=== PATIENT | male | born 1990 | race Caucasian/White ===

== ENCOUNTER 2018-07-19 15:54 | Emergency (ER) | payer OTHER, SELFPAY ==
[2018-07-19 15:57] VITALS: BP 129/75; PULSE 95; RESP 15; TEMP 36.8; O2SAT 100; BMI 19.8
--- NOTE | 2018-07-19 16:13 | DI.RAD.S_ITS ---
PROCEDURE: XR CHEST 1V INDICATIONS: suspected sepsis TECHNIQUE: One view of the chest was acquired. COMPARISON: None. FINDINGS: Surgical changes and devices: None. Lungs and pleura: Lungs are clear. No pleural effusions or pneumothorax. Mediastinum: Mediastinal contours appear normal. Heart size is normal. Bones and chest wall: No suspicious bony lesions. Overlying soft tissues appear unremarkable. IMPRESSION: No acute disease Dictated by: Bryson Shine M.D. on 07/19/2018 at 16:51 Approved by: Bryson Shine M.D. on 07/19/2018 at 16:52
[2018-07-19 16:39] LABS: Add Manual Diff / Slide Review NO; Basophils Absolute Auto 100 /uL (0-100); Basophils Percent Auto 0.8 % (0-2); Eosinophils Absolute Auto 100 /uL (0-450); Eosinophils Percent Auto 0.8 % (2-4); Hematocrit 29.4 % (41-53); Hemoglobin 9.2 g/dL (13.5-17.5); Lymphocytes Absolute Auto 1900 /uL (1100-4500); Lymphocytes Percent Auto 23.1 % (25-40); Mean Corpuscular HGB Conc 31.4 % (30-36); Mean Corpuscular Hemoglobin 23.8 PG (26-34); Mean Corpuscular Volume 75.7 fL (80-100); Monocytes Absolute Auto 1400 /uL (0-900); Monocytes Percent Auto 17.1 % (3-14); Neutrophils Absolute Auto 4800 /uL (1500-7000); Neutrophils Percent Auto 58.2 % (50-75); Red Blood Cell Count 3.87 X10^6/uL (4.5-5.9); Red Cell Distribution Width 15.7 % (11.6-14.8); White Blood Cell Count 8.3 X10^3/uL (4.5-11.0)
[2018-07-19 16:40] LABS: Platelet Count 856 X10^3/uL (150-400)
[2018-07-19 16:47] LABS: INR 1.5 (0.9-1.3); Prothrombin Time 17.7 SECONDS (10.1-12.7)
[2018-07-19 16:50] LABS: PTT Partial Thromboplastin Tim 38 SECONDS (26.4-36.2)
[2018-07-19 16:52] LABS: Alanine Aminotransferase 34 IU/L (21-72); Albumin 3.4 g/dL (3.5-5.0); Albumin Globulin Ratio 0.8 (1.0-2.8); Alkaline Phosphatase 93 U/L (38-126); Aspartate Aminotransferase 33 IU/L (17-59); BUN Creatinine Ratio 16.3 (6-22); Bilirubin Total 0.7 mg/dL (0.2-1.3); Blood Urea Nitrogen 13 mg/dL (9-20); Carbon Dioxide 26 mmol/L (22-32); Chloride 100 mmol/L (98-107); Estimated Glomerular Filt Rate > 60.0 mL/min (>60); Globulin 4.4 g/dL (1.7-4.1); Glucose 105 mg/dL (70-100); HEMOLYSIS < 15 (0-50); Lipase 19 U/L (23-300); Sodium 139 mmol/L (137-145); Total Protein 7.8 g/dL (6.3-8.2)
[2018-07-19 16:53] LABS: Lactate (Lactic Acid) 1.7 mmol/L (0.7-2.1)
--- NOTE | 2018-07-19 16:54 | ED.RECABL ---
HPI - Recheck/Abnormal Lab/Rx <Yovanny Colin DO - Last Filed: 07/20/18 08:49> General Chief Complaint: Recheck/Abnormal Lab/Rx Stated Complaint: Abnromal labs per [facility] Time Seen by Provider: 07/19/18 16:00 Source: patient Mode of arrival: ambulatory Limitations: no limitations History of Present Illness HPI narrative: 27-year-old male nonsmoker and otherwise healthy presents from the [facility] for evaluation of a few months worth of migrating joint pain and swelling in the absence of injury. It had started where his pain moved from ankle to knee to wrist with swelling but then would resolve prior to moving. Over the past few weeks it has become much more persistent and multiple joints at the same time. He now has swelling of both knees as well as both wrists. For the past week or 2 he has had night sweats as well as subjective fever and chills. 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 Related Data Home Medications Medication Instructions Recorded Confirmed acetaminophen 1 dose PO PRN PRN 07/19/18 07/19/18 naproxen 1 dose PO PRN PRN 07/19/18 07/19/18 Allergies Allergy/AdvReac Type Severity Reaction Status Date / Time Penicillins Allergy Verified 07/19/18 17:07 Review of Systems <DO Erika Mansfield Last Filed: 07/20/18 08:49> Constitutional Denies chills, Denies fever(s), Denies lethargy and Denies weakness Comments: night sweats Eyes Denies change in vision, Denies eye discharge, Denies irritation and Denies loss of vision ENT Ears, Nose, Mouth, and Throat: Denies change in voice, Denies neck pain and Denies sore throat Cardiovascular Denies chest pain, Denies irregular heart rhythm, Denies lightheadedness, Denies palpitations, Denies dyspnea, Denies dyspnea on exertion and Denies orthopnea Respiratory Denies cough, Denies dyspnea, Denies dyspnea on exertion and Denies wheezing Gastrointestinal Gastrointestinal: Denies abdominal pain, Denies change in bowel habits, Denies diarrhea, Denies nausea and Denies vomiting Genitourinary Denies hematuria, Denies flank pain, Denies urinary incontinence and Denies urinary urgency Musculoskeletal Denies neck pain Integumentary/Breasts Denies pruritus, Denies erythema, Denies rash and Denies wounds Neurologic Denies confusion, Denies loss of vision and Denies weakness Psychiatric Denies anxiety, Denies confusion, Denies depression, Denies homicidal ideation and Denies suicidal ideation Endocrine Denies palpitations Hematologic/Lymphatic Denies easy bruising Allergic/Immunologic Denies wheezing PFSH <Yovanny Colin DO - Last Filed: 07/20/18 08:49> Social History Smoking Status: Never smoker Social History Smoking Status: Never smoker Exam <Yovanny Colin DO - Last Filed: 07/20/18 08:49> Narrative Exam Narrative: GENERAL:27M, thin, baseline healthy, no obvious acute distress HEAD: Atraumatic. Normocephalic. No temporal or scalp tenderness. EYES: Pupils equal round and reactive. Extraocular motions intact. No scleral icterus. No injection or drainage. ENT: Nose without bleeding, purulent drainage or septal hematoma. Throat without erythema, tonsillar hypertrophy or exudate. Uvula midline. Airway patent. NECK: Trachea midline. No JVD or lymphadenopathy. Supple, nontender, no meningeal signs. CARDIOVASCULAR: Regular rate and rhythm without murmurs, gallops, or rubs. RESPIRATORY: Clear to auscultation. Breath sounds equal bilaterally. No wheezes, rales, or rhonchi. GASTROINTESTINAL: Abdomen soft, non-tender, nondistended. No hepato-splenomegaly, or palpable masses. No guarding. RECTAL: heme negative EXTREMITIES: No clubbing, cyanosis, or edema. No joint tenderness, effusion, or edema noted. BACK: Nontender without deformity or crepitance. No flank tenderness. NEURO: AOx3. SKIN: No rash or erythema. Initial Vital Signs Initial Vital Signs: Vital Signs Temperature 98.2 F 07/19/18 15:57 Pulse Rate 95 H 07/19/18 15:57 Respiratory Rate 15 07/19/18 15:57 Blood Pressure 129/75 07/19/18 15:57 Pulse Oximetry 100 07/19/18 15:57 <Jaylyn Silvestre DO - Last Filed: 07/20/18 03:11> Initial Vital Signs Initial Vital Signs: Vital Signs Temperature 98.2 F 07/19/18 15:57 Pulse Rate 95 H 07/19/18 15:57 Respiratory Rate 15 07/19/18 15:57 Blood Pressure 129/75 07/19/18 15:57 Pulse Oximetry 100 07/19/18 15:57 Course <Yovanny Colin DO - Last Filed: 07/20/18 08:49> Orders Ordered: ED Orders 07/19/18 19:30 Urinalysis and Microscopic Stat Consultations Consultation #1: call to Heme/Onc (Dr. Shine) whom is happy to play a role. He suggests some extra labs such as haptoglobin, etc. Also suggests CT of Chest / Abd / Pelvis and is worried about colon/rectal CA. Wishes to receive call back upon receipt of CT sign out to Dr. Silvestre at 1900. She will follow up on images, contact Dr. Shine, and develop discharge plan Vital Signs - 8 hr 07/19/18 20:07 Pulse Rate 74 Respiratory Rate 16 Blood Pressure [Left Arm] 113/72 Pulse Oximetry 100 <Jaylyn Silvestre, - Last Filed: 07/20/18 03:11> Orders Ordered: ED Orders 07/19/18 19:30 Urinalysis and Microscopic Stat Consultations Consultation #1: Dr. Cisse, has been updated on patient's CT results. His he agrees to see the patient in clinic tomorrow for IV iron transfusion. Time: 20:08 Vital Signs - 8 hr 07/19/18 20:07 Pulse Rate 74 Respiratory Rate 16 Blood Pressure [Left Arm] 113/72 Pulse Oximetry 100 MDM - Recheck/Abnormal Lab/Rx <Yovanny Colin, DO - Last Filed: 07/20/18 08:49> Lab Data Result diagrams: 07/19/18 16:25 07/19/18 16:25 Lab Results 07/19/18 07/19/18 07/19/18 Range/Units 16:25 16:25 16:25 WBC 8.3 (4.5-11.0) X10^3/uL RBC 3.87 L (4.5-5.9) X10^6/uL Hgb 9.2 L (13.5-17.5) g/dL Hct 29.4 L (41-53) % MCV 75.7 L (80-100) fL MCH 23.8 L (26-34) PG MCHC 31.4 (30-36) % RDW 15.7 H (11.6-14.8) % Plt Count 856 H (150-400) X10^3/uL Neut % (Auto) 58.2 (50-75) % Lymph % (Auto) 23.1 L (25-40) % Maries % (Auto) 17.1 H (3-14) % Eos % (Auto) 0.8 L (2-4) % Baso % (Auto) 0.8 (0-2) % Neut # (Auto) 4800 (3183-8418) /uL Lymph # (Auto) 1900 (4632-5049) /uL Maries # (Auto) 1400 H (0-900) /uL Eos # (Auto) 100 (0-450) /uL Baso # (Auto) 100 (0-100) /uL Platelet Estimate Increased on smear RBC Morphology Not Reportable ESR (0-15) MM/HR Percent Retic (0.87-2.60) % PT 17.7 H (10.1-12.7) SECONDS INR 1.5 H (0.9-1.3) APTT 38 H (26.4-36.2) SECONDS Sodium (137-145) mmol/L Potassium (3.4-5.1) mmol/L Chloride (98-107) mmol/L Carbon Dioxide (22-32) mmol/L BUN (9-20) mg/dL Creatinine (0.66-1.25) mg/dL Estimated GFR (>60) mL/min BUN/Creatinine Ratio (6-22) Glucose (70-100) mg/dL Lactate (0.7-2.1) mmol/L Calcium (8.4-10.2) mg/dL Iron (49-181) ug/dL TIBC (261-462) ug/dL % Saturation (20-50) % Transferrin (206-381) mg/dL Ferritin (17.9-464) ng/mL Total Bilirubin (0.2-1.3) mg/dL AST (17-59) IU/L ALT (21-72) IU/L Alkaline Phosphatase (38-126) U/L Lactate Dehydrogenase (313-618) U/L Total Creatine Kinase (55-170) U/L CK-MB (CK-2) CK-MB (CK-2) Rel Index Troponin I (0.01-0.034) ng/mL C-Reactive Protein (<1.0) mg/dL Total Protein (6.3-8.2) g/dL Albumin (3.5-5.0) g/dL Globulin (1.7-4.1) g/dL Albumin/Globulin Ratio (1.0-2.8) Lipase (23-300) U/L Carcinoembryonic Ag (0.1-3.0) ng/mL Procalcitonin 0.12 (<0.5) ng/mL Urine Color Urine Appearance Urine pH (4.5-8.0) Ur Specific [place] (1.000-1.035) Urine Protein (Negative) Urine Glucose (UA) (Negative) g/dL Urine Ketones (NEGATIVE) Urine Occult Blood (Negative) Urine Nitrate (Negative) Urine Bilirubin (NEGATIVE) Urine Urobilinogen (0.2) E.U./dL Ur Leukocyte Esterase (NEGATIVE) Urine RBC (0-5/HPF) Urine WBC (0-5/HPF) Urine Bacteria (None) Ur Culture Indicated? 07/19/18 07/19/18 07/19/18 Range/Units 16:25 16:25 16:25 WBC (4.5-11.0) X10^3/uL RBC (4.5-5.9) X10^6/uL Hgb (13.5-17.5) g/dL Hct (41-53) % MCV (80-100) fL MCH (26-34) PG MCHC (30-36) % RDW (11.6-14.8) % Plt Count (150-400) X10^3/uL Neut % (Auto) (50-75) % Lymph % (Auto) (25-40) % Maries % (Auto) (3-14) % Eos % (Auto) (2-4) % Baso % (Auto) (0-2) % Neut # (Auto) (2817-7965) /uL Lymph # (Auto) (1222-9187) /uL Maries # (Auto) (0-900) /uL Eos # (Auto) (0-450) /uL Baso # (Auto) (0-100) /uL Platelet Estimate RBC Morphology ESR 85 H (0-15) MM/HR Percent Retic (0.87-2.60) % PT (10.1-12.7) SECONDS INR (0.9-1.3) APTT (26.4-36.2) SECONDS Sodium 139 (137-145) mmol/L Potassium 4.0 (3.4-5.1) mmol/L Chloride 100 (98-107) mmol/L Carbon Dioxide 26 (22-32) mmol/L BUN 13 (9-20) mg/dL Creatinine 0.80 (0.66-1.25) mg/dL Estimated GFR > 60.0 (>60) mL/min BUN/Creatinine Ratio 16.3 (6-22) Glucose 105 H (70-100) mg/dL Lactate 1.7 (0.7-2.1) mmol/L Calcium 9.0 (8.4-10.2) mg/dL Iron (49-181) ug/dL TIBC (261-462) ug/dL % Saturation (20-50) % Transferrin (206-381) mg/dL Ferritin (17.9-464) ng/mL Total Bilirubin 0.7 (0.2-1.3) mg/dL AST 33 (17-59) IU/L ALT 34 (21-72) IU/L Alkaline Phosphatase 93 (38-126) U/L Lactate Dehydrogenase (313-618) U/L Total Creatine Kinase (55-170) U/L CK-MB (CK-2) CK-MB (CK-2) Rel Index Troponin I (0.01-0.034) ng/mL C-Reactive Protein (<1.0) mg/dL Total Protein 7.8 (6.3-8.2) g/dL Albumin 3.4 L (3.5-5.0) g/dL Globulin 4.4 H (1.7-4.1) g/dL Albumin/Globulin Ratio 0.8 L (1.0-2.8) Lipase 19 L (23-300) U/L Carcinoembryonic Ag (0.1-3.0) ng/mL Procalcitonin (<0.5) ng/mL Urine Color Urine Appearance Urine pH (4.5-8.0) Ur Specific [place] (1.000-1.035) Urine Protein (Negative) Urine Glucose (UA) (Negative) g/dL Urine Ketones (NEGATIVE) Urine Occult Blood (Negative) Urine Nitrate (Negative) Urine Bilirubin (NEGATIVE) Urine Urobilinogen (0.2) E.U./dL Ur Leukocyte Esterase (NEGATIVE) Urine RBC (0-5/HPF) Urine WBC (0-5/HPF) Urine Bacteria (None) Ur Culture Indicated? 07/19/18 07/19/18 07/19/18 Range/Units 16:25 16:25 16:25 WBC (4.5-11.0) X10^3/uL RBC (4.5-5.9) X10^6/uL Hgb (13.5-17.5) g/dL Hct (41-53) % MCV (80-100) fL MCH (26-34) PG MCHC (30-36) % RDW (11.6-14.8) % Plt Count (150-400) X10^3/uL Neut % (Auto) (50-75) % Lymph % (Auto) (25-40) % Maries % (Auto) (3-14) % Eos % (Auto) (2-4) % Baso % (Auto) (0-2) % Neut # (Auto) (3673-0211) /uL Lymph # (Auto) (5783-8032) /uL Maries # (Auto) (0-900) /uL Eos # (Auto) (0-450) /uL Baso # (Auto) (0-100) /uL Platelet Estimate RBC Morphology ESR (0-15) MM/HR Percent Retic (0.87-2.60) % PT (10.1-12.7) SECONDS INR (0.9-1.3) APTT (26.4-36.2) SECONDS Sodium (137-145) mmol/L Potassium (3.4-5.1) mmol/L Chloride (98-107) mmol/L Carbon Dioxide (22-32) mmol/L BUN (9-20) mg/dL Creatinine (0.66-1.25) mg/dL Estimated GFR (>60) mL/min BUN/Creatinine Ratio (6-22) Glucose (70-100) mg/dL Lactate (0.7-2.1) mmol/L Calcium (8.4-10.2) mg/dL Iron 12 L (49-181) ug/dL TIBC 206 L (261-462) ug/dL % Saturation 6 L (20-50) % Transferrin 147 L (206-381) mg/dL Ferritin 381.0 (17.9-464) ng/mL Total Bilirubin (0.2-1.3) mg/dL AST (17-59) IU/L ALT (21-72) IU/L Alkaline Phosphatase (38-126) U/L Lactate Dehydrogenase (313-618) U/L Total Creatine Kinase < 20 L (55-170) U/L CK-MB (CK-2) TNP CK-MB (CK-2) Rel Index TNP Troponin I < 0.012 (0.01-0.034) ng/mL C-Reactive Protein 18.7 H (<1.0) mg/dL Total Protein (6.3-8.2) g/dL Albumin (3.5-5.0) g/dL Globulin (1.7-4.1) g/dL Albumin/Globulin Ratio (1.0-2.8) Lipase (23-300) U/L Carcinoembryonic Ag (0.1-3.0) ng/mL Procalcitonin (<0.5) ng/mL Urine Color Urine Appearance Urine pH (4.5-8.0) Ur Specific [place] (1.000-1.035) Urine Protein (Negative) Urine Glucose (UA) (Negative) g/dL Urine Ketones (NEGATIVE) Urine Occult Blood (Negative) Urine Nitrate (Negative) Urine Bilirubin (NEGATIVE) Urine Urobilinogen (0.2) E.U./dL Ur Leukocyte Esterase (NEGATIVE) Urine RBC (0-5/HPF) Urine WBC (0-5/HPF) Urine Bacteria (None) Ur Culture Indicated? 07/19/18 07/19/18 07/19/18 Range/Units 16:25 16:25 19:30 WBC (4.5-11.0) X10^3/uL RBC (4.5-5.9) X10^6/uL Hgb (13.5-17.5) g/dL Hct (41-53) % MCV (80-100) fL MCH (26-34) PG MCHC (30-36) % RDW (11.6-14.8) % Plt Count (150-400) X10^3/uL Neut % (Auto) (50-75) % Lymph % (Auto) (25-40) % Maries % (Auto) (3-14) % Eos % (Auto) (2-4) % Baso % (Auto) (0-2) % Neut # (Auto) (1376-1279) /uL Lymph # (Auto) (5403-4015) /uL Maries # (Auto) (0-900) /uL Eos # (Auto) (0-450) /uL Baso # (Auto) (0-100) /uL Platelet Estimate RBC Morphology ESR (0-15) MM/HR Percent Retic 0.8 L (0.87-2.60) % PT (10.1-12.7) SECONDS INR (0.9-1.3) APTT (26.4-36.2) SECONDS Sodium (137-145) mmol/L Potassium (3.4-5.1) mmol/L Chloride (98-107) mmol/L Carbon Dioxide (22-32) mmol/L BUN (9-20) mg/dL Creatinine (0.66-1.25) mg/dL Estimated GFR (>60) mL/min BUN/Creatinine Ratio (6-22) Glucose (70-100) mg/dL Lactate (0.7-2.1) mmol/L Calcium (8.4-10.2) mg/dL Iron (49-181) ug/dL TIBC (261-462) ug/dL % Saturation (20-50) % Transferrin (206-381) mg/dL Ferritin (17.9-464) ng/mL Total Bilirubin (0.2-1.3) mg/dL AST (17-59) IU/L ALT (21-72) IU/L Alkaline Phosphatase (38-126) U/L Lactate Dehydrogenase 605 (313-618) U/L Total Creatine Kinase (55-170) U/L CK-MB (CK-2) CK-MB (CK-2) Rel Index Troponin I (0.01-0.034) ng/mL C-Reactive Protein (<1.0) mg/dL Total Protein (6.3-8.2) g/dL Albumin (3.5-5.0) g/dL Globulin (1.7-4.1) g/dL Albumin/Globulin Ratio (1.0-2.8) Lipase (23-300) U/L Carcinoembryonic Ag < 0.3 (0.1-3.0) ng/mL Procalcitonin (<0.5) ng/mL Urine Color Yellow Urine Appearance Clear Urine pH 6.0 (4.5-8.0) Ur Specific [place] 1.010 (1.000-1.035) Urine Protein Negative (Negative) Urine Glucose (UA) Negative (Negative) g/dL Urine Ketones Negative (NEGATIVE) Urine Occult Blood Negative (Negative) Urine Nitrate Negative (Negative) Urine Bilirubin Negative (NEGATIVE) Urine Urobilinogen 0.2 (0.2) E.U./dL Ur Leukocyte Esterase Negative (NEGATIVE) Urine RBC None seen (0-5/HPF) Urine WBC None seen (0-5/HPF) Urine Bacteria None seen (None) Ur Culture Indicated? Cult not indicated Urine Dip Bedside Urine Glucose Negative Bedside Urine Bilirubin - Negative Bedside Urine Ketone - Negative Urine Specific [place] 1.015 Bedside Urine Occult Blood - Negative Bedside Urine pH 6.0 Bedside Urine Protein - Negative Bedside Urine Urobilinogen +/- 1mg Bedside Urine Nitrite - Negative Bedside Urine Leukocytes - Negative Esterase <Jaylyn Silvestre, DO - Last Filed: 07/20/18 03:11> Lab Data Attestation: I reviewed the patient's lab results. Lab Results 07/19/18 07/19/18 07/19/18 Range/Units 16:25 16:25 16:25 WBC 8.3 (4.5-11.0) X10^3/uL RBC 3.87 L (4.5-5.9) X10^6/uL Hgb 9.2 L (13.5-17.5) g/dL Hct 29.4 L (41-53) % MCV 75.7 L (80-100) fL MCH 23.8 L (26-34) PG MCHC 31.4 (30-36) % RDW 15.7 H (11.6-14.8) % Plt Count 856 H (150-400) X10^3/uL Neut % (Auto) 58.2 (50-75) % Lymph % (Auto) 23.1 L (25-40) % Maries % (Auto) 17.1 H (3-14) % Eos % (Auto) 0.8 L (2-4) % Baso % (Auto) 0.8 (0-2) % Neut # (Auto) 4800 (5589-4247) /uL Lymph # (Auto) 1900 (8724-1436) /uL Maries # (Auto) 1400 H (0-900) /uL Eos # (Auto) 100 (0-450) /uL Baso # (Auto) 100 (0-100) /uL Platelet Estimate Increased on smear RBC Morphology Not Reportable ESR (0-15) MM/HR Percent Retic (0.87-2.60) % PT 17.7 H (10.1-12.7) SECONDS INR 1.5 H (0.9-1.3) APTT 38 H (26.4-36.2) SECONDS Sodium (137-145) mmol/L Potassium (3.4-5.1) mmol/L Chloride (98-107) mmol/L Carbon Dioxide (22-32) mmol/L BUN (9-20) mg/dL Creatinine (0.66-1.25) mg/dL Estimated GFR (>60) mL/min BUN/Creatinine Ratio (6-22) Glucose (70-100) mg/dL Lactate (0.7-2.1) mmol/L Calcium (8.4-10.2) mg/dL Iron (49-181) ug/dL TIBC (261-462) ug/dL % Saturation (20-50) % Transferrin (206-381) mg/dL Ferritin (17.9-464) ng/mL Total Bilirubin (0.2-1.3) mg/dL AST (17-59) IU/L ALT (21-72) IU/L Alkaline Phosphatase (38-126) U/L Lactate Dehydrogenase (313-618) U/L Total Creatine Kinase (55-170) U/L CK-MB (CK-2) CK-MB (CK-2) Rel Index Troponin I (0.01-0.034) ng/mL C-Reactive Protein (<1.0) mg/dL Total Protein (6.3-8.2) g/dL Albumin (3.5-5.0) g/dL Globulin (1.7-4.1) g/dL Albumin/Globulin Ratio (1.0-2.8) Lipase (23-300) U/L Carcinoembryonic Ag (0.1-3.0) ng/mL Procalcitonin 0.12 (<0.5) ng/mL Urine Color Urine Appearance Urine pH (4.5-8.0) Ur Specific [place] (1.000-1.035) Urine Protein (Negative) Urine Glucose (UA) (Negative) g/dL Urine Ketones (NEGATIVE) Urine Occult Blood (Negative) Urine Nitrate (Negative) Urine Bilirubin (NEGATIVE) Urine Urobilinogen (0.2) E.U./dL Ur Leukocyte Esterase (NEGATIVE) Urine RBC (0-5/HPF) Urine WBC (0-5/HPF) Urine Bacteria (None) Ur Culture Indicated? 07/19/18 07/19/18 07/19/18 Range/Units 16:25 16:25 16:25 WBC (4.5-11.0) X10^3/uL RBC (4.5-5.9) X10^6/uL Hgb (13.5-17.5) g/dL Hct (41-53) % MCV (80-100) fL MCH (26-34) PG MCHC (30-36) % RDW (11.6-14.8) % Plt Count (150-400) X10^3/uL Neut % (Auto) (50-75) % Lymph % (Auto) (25-40) % Maries % (Auto) (3-14) % Eos % (Auto) (2-4) % Baso % (Auto) (0-2) % Neut # (Auto) (1514-1486) /uL Lymph # (Auto) (1148-3163) /uL Maries # (Auto) (0-900) /uL Eos # (Auto) (0-450) /uL Baso # (Auto) (0-100) /uL Platelet Estimate RBC Morphology ESR 85 H (0-15) MM/HR Percent Retic (0.87-2.60) % PT (10.1-12.7) SECONDS INR (0.9-1.3) APTT (26.4-36.2) SECONDS Sodium 139 (137-145) mmol/L Potassium 4.0 (3.4-5.1) mmol/L Chloride 100 (98-107) mmol/L Carbon Dioxide 26 (22-32) mmol/L BUN 13 (9-20) mg/dL Creatinine 0.80 (0.66-1.25) mg/dL Estimated GFR > 60.0 (>60) mL/min BUN/Creatinine Ratio 16.3 (6-22) Glucose 105 H (70-100) mg/dL Lactate 1.7 (0.7-2.1) mmol/L Calcium 9.0 (8.4-10.2) mg/dL Iron (49-181) ug/dL TIBC (261-462) ug/dL % Saturation (20-50) % Transferrin (206-381) mg/dL Ferritin (17.9-464) ng/mL Total Bilirubin 0.7 (0.2-1.3) mg/dL AST 33 (17-59) IU/L ALT 34 (21-72) IU/L Alkaline Phosphatase 93 (38-126) U/L Lactate Dehydrogenase (313-618) U/L Total Creatine Kinase (55-170) U/L CK-MB (CK-2) CK-MB (CK-2) Rel Index Troponin I (0.01-0.034) ng/mL C-Reactive Protein (<1.0) mg/dL Total Protein 7.8 (6.3-8.2) g/dL Albumin 3.4 L (3.5-5.0) g/dL Globulin 4.4 H (1.7-4.1) g/dL Albumin/Globulin Ratio 0.8 L (1.0-2.8) Lipase 19 L (23-300) U/L Carcinoembryonic Ag (0.1-3.0) ng/mL Procalcitonin (<0.5) ng/mL Urine Color Urine Appearance Urine pH (4.5-8.0) Ur Specific [place] (1.000-1.035) Urine Protein (Negative) Urine Glucose (UA) (Negative) g/dL Urine Ketones (NEGATIVE) Urine Occult Blood (Negative) Urine Nitrate (Negative) Urine Bilirubin (NEGATIVE) Urine Urobilinogen (0.2) E.U./dL Ur Leukocyte Esterase (NEGATIVE) Urine RBC (0-5/HPF) Urine WBC (0-5/HPF) Urine Bacteria (None) Ur Culture Indicated? 07/19/18 07/19/18 07/19/18 Range/Units 16:25 16:25 16:25 WBC (4.5-11.0) X10^3/uL RBC (4.5-5.9) X10^6/uL Hgb (13.5-17.5) g/dL Hct (41-53) % MCV (80-100) fL MCH (26-34) PG MCHC (30-36) % RDW (11.6-14.8) % Plt Count (150-400) X10^3/uL Neut % (Auto) (50-75) % Lymph % (Auto) (25-40) % Maries % (Auto) (3-14) % Eos % (Auto) (2-4) % Baso % (Auto) (0-2) % Neut # (Auto) (4657-2204) /uL Lymph # (Auto) (4016-5712) /uL Maries # (Auto) (0-900) /uL Eos # (Auto) (0-450) /uL Baso # (Auto) (0-100) /uL Platelet Estimate RBC Morphology ESR (0-15) MM/HR Percent Retic (0.87-2.60) % PT (10.1-12.7) SECONDS INR (0.9-1.3) APTT (26.4-36.2) SECONDS Sodium (137-145) mmol/L Potassium (3.4-5.1) mmol/L Chloride (98-107) mmol/L Carbon Dioxide (22-32) mmol/L BUN (9-20) mg/dL Creatinine (0.66-1.25) mg/dL Estimated GFR (>60) mL/min BUN/Creatinine Ratio (6-22) Glucose (70-100) mg/dL Lactate (0.7-2.1) mmol/L Calcium (8.4-10.2) mg/dL Iron 12 L (49-181) ug/dL TIBC 206 L (261-462) ug/dL % Saturation 6 L (20-50) % Transferrin 147 L (206-381) mg/dL Ferritin 381.0 (17.9-464) ng/mL Total Bilirubin (0.2-1.3) mg/dL AST (17-59) IU/L ALT (21-72) IU/L Alkaline Phosphatase (38-126) U/L Lactate Dehydrogenase (313-618) U/L Total Creatine Kinase < 20 L (55-170) U/L CK-MB (CK-2) TNP CK-MB (CK-2) Rel Index TNP Troponin I < 0.012 (0.01-0.034) ng/mL C-Reactive Protein 18.7 H (<1.0) mg/dL Total Protein (6.3-8.2) g/dL Albumin (3.5-5.0) g/dL Globulin (1.7-4.1) g/dL Albumin/Globulin Ratio (1.0-2.8) Lipase (23-300) U/L Carcinoembryonic Ag (0.1-3.0) ng/mL Procalcitonin (<0.5) ng/mL Urine Color Urine Appearance Urine pH (4.5-8.0) Ur Specific [place] (1.000-1.035) Urine Protein (Negative) Urine Glucose (UA) (Negative) g/dL Urine Ketones (NEGATIVE) Urine Occult Blood (Negative) Urine Nitrate (Negative) Urine Bilirubin (NEGATIVE) Urine Urobilinogen (0.2) E.U./dL Ur Leukocyte Esterase (NEGATIVE) Urine RBC (0-5/HPF) Urine WBC (0-5/HPF) Urine Bacteria (None) Ur Culture Indicated? 07/19/18 07/19/18 07/19/18 Range/Units 16:25 16:25 19:30 WBC (4.5-11.0) X10^3/uL RBC (4.5-5.9) X10^6/uL Hgb (13.5-17.5) g/dL Hct (41-53) % MCV (80-100) fL MCH (26-34) PG MCHC (30-36) % RDW (11.6-14.8) % Plt Count (150-400) X10^3/uL Neut % (Auto) (50-75) % Lymph % (Auto) (25-40) % Maries % (Auto) (3-14) % Eos % (Auto) (2-4) % Baso % (Auto) (0-2) % Neut # (Auto) (3239-9915) /uL Lymph # (Auto) (0174-9399) /uL Maries # (Auto) (0-900) /uL Eos # (Auto) (0-450) /uL Baso # (Auto) (0-100) /uL Platelet Estimate RBC Morphology ESR (0-15) MM/HR Percent Retic 0.8 L (0.87-2.60) % PT (10.1-12.7) SECONDS INR (0.9-1.3) APTT (26.4-36.2) SECONDS Sodium (137-145) mmol/L Potassium (3.4-5.1) mmol/L Chloride (98-107) mmol/L Carbon Dioxide (22-32) mmol/L BUN (9-20) mg/dL Creatinine (0.66-1.25) mg/dL Estimated GFR (>60) mL/min BUN/Creatinine Ratio (6-22) Glucose (70-100) mg/dL Lactate (0.7-2.1) mmol/L Calcium (8.4-10.2) mg/dL Iron (49-181) ug/dL TIBC (261-462) ug/dL % Saturation (20-50) % Transferrin (206-381) mg/dL Ferritin (17.9-464) ng/mL Total Bilirubin (0.2-1.3) mg/dL AST (17-59) IU/L ALT (21-72) IU/L Alkaline Phosphatase (38-126) U/L Lactate Dehydrogenase 605 (313-618) U/L Total Creatine Kinase (55-170) U/L CK-MB (CK-2) CK-MB (CK-2) Rel Index Troponin I (0.01-0.034) ng/mL C-Reactive Protein (<1.0) mg/dL Total Protein (6.3-8.2) g/dL Albumin (3.5-5.0) g/dL Globulin (1.7-4.1) g/dL Albumin/Globulin Ratio (1.0-2.8) Lipase (23-300) U/L Carcinoembryonic Ag < 0.3 (0.1-3.0) ng/mL Procalcitonin (<0.5) ng/mL Urine Color Yellow Urine Appearance Clear Urine pH 6.0 (4.5-8.0) Ur Specific [place] 1.010 (1.000-1.035) Urine Protein Negative (Negative) Urine Glucose (UA) Negative (Negative) g/dL Urine Ketones Negative (NEGATIVE) Urine Occult Blood Negative (Negative) Urine Nitrate Negative (Negative) Urine Bilirubin Negative (NEGATIVE) Urine Urobilinogen 0.2 (0.2) E.U./dL Ur Leukocyte Esterase Negative (NEGATIVE) Urine RBC None seen (0-5/HPF) Urine WBC None seen (0-5/HPF) Urine Bacteria None seen (None) Ur Culture Indicated? Cult not indicated Urine Dip Bedside Urine Glucose Negative Bedside Urine Bilirubin - Negative Bedside Urine Ketone - Negative Urine Specific [place] 1.015 Bedside Urine Occult Blood - Negative Bedside Urine pH 6.0 Bedside Urine Protein - Negative Bedside Urine Urobilinogen +/- 1mg Bedside Urine Nitrite - Negative Bedside Urine Leukocytes - Negative Esterase Imaging Data CT scan - abdomen: Radiologist's impression: PROCEDURE: CT CHEST ABD PEL W CON INDICATIONS: anemia, thrombocytosis, per heme/onc TECHNIQUE: After the administration of oral and intravenous contrast, 5 mm thick sections acquired from the lung apices to the symphysis. 5 mm coronal and sagittal reformats were performed, with additional 7 mm coronal MIP reformats through the lungs. For radiation dose reduction, the following was used: automated exposure control, adjustment of mA and/or kV according to patient size. COMPARISON: None. FINDINGS: Image quality: Excellent. CHEST: Lungs and pleura: No acute airspace opacities. No pleural effusions or pneumothorax. Central and peripheral airways appear patent and normal in caliber. Mediastinum: Heart size is normal. No pericardial effusion. No mediastinal or hilar adenopathy by size criteria. Thoracic aorta and central pulmonary arteries are normal in size. Esophagus is normal in caliber. No hiatal hernia. Chest wall: No axillary or supraclavicular adenopathy by size criteria. Thyroid gland is unremarkable. ABDOMEN: Solid organs: Liver is normal in size and enhancement. Gallbladder is unremarkable with. Biliary system is non dilated. Pancreas enhances normally. Spleen is normal in size and enhancement. No adrenal nodules. Kidneys demonstrate normal size and enhancement, without hydronephrosis. Peritoneum and bowel: Bowel loops demonstrate normal wall thickness and caliber. No free fluid or air. Nodes and vessels: No retroperitoneal or mesenteric adenopathy by size criteria. Aorta and inferior vena cava are normal in size. Miscellaneous: No ventral hernias. PELVIS: Genitourinary: Bladder wall thickness is normal. Bladder is distended. Miscellaneous: No inguinal hernias or adenopathy. Bones: No suspicious bony lesions. No vertebral body compression fractures. IMPRESSION: 1. Distended bladder without bladder wall thickening. 2. No other significant findings in the chest, abdomen, and pelvis. Whole Dictated by: Jonathan Aldridge M.D. on 07/19/2018 at 19:46 [facility] Narrative Medical decision making narrative: I received sign-out from Dr. Cristi romo shift provider. Awaiting CT results. Seen and evaluated patient by self. Overall appears well nontoxic seemed comfortable. CT is essentially negative. oncology recommend close outpatient followup he is happy to see him tomorrow in the clinic for IV iron infusion. However due to patient's insurance he will need a referral. I have discussed at length with patient that he needs further workup and evaluation. Possible colonoscopy and EGD as well. he understands. Discharge Plan Departure Patient Disposition: Home Clinical Impression: Anemia Qualifiers: Anemia type: iron deficiency Iron deficiency anemia type: unspecified iron deficiency Qualified Code(s): D50.9 - Iron deficiency anemia, unspecified Discharge Date/Time: 07/19/18 20:47 Interventions: ED Discharge Assessment Last Done: 07/19/18 20:46 Instructions: Anemia Activity Restrictions/Additional Instructions: *You have been diagnosed with anemia *What to do: It Is imperative that he follow up with Hematology. You will need iron transfusion possibly more workup. He will also need a referral from [place]. *Continue to take medications as directed *Follow up with your primary care provider in 2-3 days *Return to ER if you should have increased weakness, bloody stool, increased pain or any new, worsening or concerning symptoms Prescriptions: No Action acetaminophen 1 dose PO PRN PRN (Reason: pain) RF: 0 naproxen 1 dose PO PRN PRN (Reason: pain) RF: 0 Referrals: [facility] [Outside] Rosemary Cisse MD [Physician] -
[2018-07-19 17:03] LABS: Platelet Estimate Increased on smear
[2018-07-19 17:13] LABS: Creatine Kinase < 20 U/L (55-170)
[2018-07-19 17:14] LABS: Procalcitonin 0.12 ng/mL (<0.5)
[2018-07-19 17:21] LABS: Erythrocyte Sedimentation Rate 85 MM/HR (0-15)
[2018-07-19 17:22] LABS: HEMOLYSIS < 15 (0-50); Iron 12 ug/dL (49-181); Troponin I < 0.012 ng/mL (0.01-0.034)
[2018-07-19 17:26] LABS: C-Reactive Protein Quant 18.7 mg/dL (<1.0)
[2018-07-19 17:30] VITALS: BP 116/72; PULSE 74; RESP 16; O2SAT 99
--- NOTE | 2018-07-19 17:32 | ED_ITS ---
HPI - Recheck/Abnormal Lab/Rx <Yovanny Colin DO - Last Filed: 07/20/18 08:49> General Chief Complaint: Recheck/Abnormal Lab/Rx Stated Complaint: Abnromal labs per [facility] Time Seen by Provider: 07/19/18 16:00 Source: patient Mode of arrival: ambulatory Limitations: no limitations History of Present Illness HPI narrative: 27-year-old male nonsmoker and otherwise healthy presents from the [facility] for evaluation of a few months worth of migrating joint pain and swelling in the absence of injury. It had started where his pain moved from ankle to knee to wrist with swelling but then would resolve prior to moving. Over the past few weeks it has become much more persistent and multiple joints at the same time. He now has swelling of both knees as well as both wrists. For the past week or 2 he has had night sweats as well as subjective fever and chills. 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 Related Data Home Medications Medication Instructions Recorded Confirmed acetaminophen 1 dose PO PRN PRN 07/19/18 07/19/18 naproxen 1 dose PO PRN PRN 07/19/18 07/19/18 Allergies Allergy/AdvReac Type Severity Reaction Status Date / Time Penicillins Allergy Verified 07/19/18 17:07 Review of Systems <DO Erika Mansfield Last Filed: 07/20/18 08:49> Constitutional Denies chills, Denies fever(s), Denies lethargy and Denies weakness Comments: night sweats Eyes Denies change in vision, Denies eye discharge, Denies irritation and Denies loss of vision ENT Ears, Nose, Mouth, and Throat: Denies change in voice, Denies neck pain and Denies sore throat Cardiovascular Denies chest pain, Denies irregular heart rhythm, Denies lightheadedness, Denies palpitations, Denies dyspnea, Denies dyspnea on exertion and Denies orthopnea Respiratory Denies cough, Denies dyspnea, Denies dyspnea on exertion and Denies wheezing Gastrointestinal Gastrointestinal: Denies abdominal pain, Denies change in bowel habits, Denies diarrhea, Denies nausea and Denies vomiting Genitourinary Denies hematuria, Denies flank pain, Denies urinary incontinence and Denies urinary urgency Musculoskeletal Denies neck pain Integumentary/Breasts Denies pruritus, Denies erythema, Denies rash and Denies wounds Neurologic Denies confusion, Denies loss of vision and Denies weakness Psychiatric Denies anxiety, Denies confusion, Denies depression, Denies homicidal ideation and Denies suicidal ideation Endocrine Denies palpitations Hematologic/Lymphatic Denies easy bruising Allergic/Immunologic Denies wheezing PFSH <Yovanny Colin DO - Last Filed: 07/20/18 08:49> Social History Smoking Status: Never smoker Social History Smoking Status: Never smoker Exam <Yovanny Colin DO - Last Filed: 07/20/18 08:49> Narrative Exam Narrative: GENERAL:27M, thin, baseline healthy, no obvious acute distress HEAD: Atraumatic. Normocephalic. No temporal or scalp tenderness. EYES: Pupils equal round and reactive. Extraocular motions intact. No scleral icterus. No injection or drainage. ENT: Nose without bleeding, purulent drainage or septal hematoma. Throat without erythema, tonsillar hypertrophy or exudate. Uvula midline. Airway patent. NECK: Trachea midline. No JVD or lymphadenopathy. Supple, nontender, no meningeal signs. CARDIOVASCULAR: Regular rate and rhythm without murmurs, gallops, or rubs. RESPIRATORY: Clear to auscultation. Breath sounds equal bilaterally. No wheezes, rales, or rhonchi. GASTROINTESTINAL: Abdomen soft, non-tender, nondistended. No hepato- splenomegaly, or palpable masses. No guarding. RECTAL: heme negative EXTREMITIES: No clubbing, cyanosis, or edema. No joint tenderness, effusion, or edema noted. BACK: Nontender without deformity or crepitance. No flank tenderness. NEURO: AOx3. SKIN: No rash or erythema. Initial Vital Signs Initial Vital Signs: Vital Signs Temperature 98.2 F 07/19/18 15:57 Pulse Rate 95 H 07/19/18 15:57 Respiratory Rate 15 07/19/18 15:57 Blood Pressure 129/75 07/19/18 15:57 Pulse Oximetry 100 07/19/18 15:57 <Jaylyn Silvestre DO - Last Filed: 07/20/18 03:11> Initial Vital Signs Initial Vital Signs: Vital Signs Temperature 98.2 F 07/19/18 15:57 Pulse Rate 95 H 07/19/18 15:57 Respiratory Rate 15 07/19/18 15:57 Blood Pressure 129/75 07/19/18 15:57 Pulse Oximetry 100 07/19/18 15:57 Course <Yovanny Colin DO - Last Filed: 07/20/18 08:49> Orders Ordered: ED Orders 07/19/18 19:30 Urinalysis and Microscopic Stat Consultations Consultation #1: call to Heme/Onc (Dr. Shine) whom is happy to play a role. He suggests some extra labs such as haptoglobin, etc. Also suggests CT of Chest / Abd / Pelvis and is worried about colon/rectal CA. Wishes to receive call back upon receipt of CT sign out to Dr. Silvestre at 1900. She will follow up on images, contact Dr. Shine, and develop discharge plan Vital Signs - 8 hr 07/19/18 20:07 Pulse Rate 74 Respiratory Rate 16 Blood Pressure [Left Arm] 113/72 Pulse Oximetry 100 <Jaylyn Silvestre, - Last Filed: 07/20/18 03:11> Orders Ordered: ED Orders 07/19/18 19:30 Urinalysis and Microscopic Stat Consultations Consultation #1: Dr. Cisse, has been updated on patient's CT results. His he agrees to see the patient in clinic tomorrow for IV iron transfusion. Time: 20:08 Vital Signs - 8 hr 07/19/18 20:07 Pulse Rate 74 Respiratory Rate 16 Blood Pressure [Left Arm] 113/72 Pulse Oximetry 100 MDM - Recheck/Abnormal Lab/Rx <Yovanny Colin, DO - Last Filed: 07/20/18 08:49> Lab Data Result diagrams: 07/19/18 16:25 07/19/18 16:25 Lab Results 07/19/18 07/19/18 07/19/18 Range/Units 16:25 16:25 16:25 WBC 8.3 (4.5-11.0) X10^3/uL RBC 3.87 L (4.5-5.9) X10^6/uL Hgb 9.2 L (13.5-17.5) g/dL Hct 29.4 L (41-53) % MCV 75.7 L (80-100) fL MCH 23.8 L (26-34) PG MCHC 31.4 (30-36) % RDW 15.7 H (11.6-14.8) % Plt Count 856 H (150-400) X10^3/uL Neut % (Auto) 58.2 (50-75) % Lymph % (Auto) 23.1 L (25-40) % [place] % (Auto) 17.1 H (3-14) % Eos % (Auto) 0.8 L (2-4) % Baso % (Auto) 0.8 (0-2) % Neut # (Auto) 4800 (2142-6117) /uL Lymph # (Auto) 1900 (6291-6768) /uL [place] # (Auto) 1400 H (0-900) /uL Eos # (Auto) 100 (0-450) /uL Baso # (Auto) 100 (0-100) /uL Platelet Estimate Increased on smear RBC Morphology Not Reportable ESR (0-15) MM/HR Percent Retic (0.87-2.60) % PT 17.7 H (10.1-12.7) SECONDS INR 1.5 H (0.9-1.3) APTT 38 H (26.4-36.2) SECONDS Sodium (137-145) mmol/L Potassium (3.4-5.1) mmol/L Chloride (98-107) mmol/L Carbon Dioxide (22-32) mmol/L BUN (9-20) mg/dL Creatinine (0.66-1.25) mg/dL Estimated GFR (>60) mL/min BUN/Creatinine Ratio (6-22) Glucose (70-100) mg/dL Lactate (0.7-2.1) mmol/L Calcium (8.4-10.2) mg/dL Iron (49-181) ug/dL TIBC (261-462) ug/dL % Saturation (20-50) % Transferrin (206-381) mg/dL Ferritin (17.9-464) ng/mL Total Bilirubin (0.2-1.3) mg/dL AST (17-59) IU/L ALT (21-72) IU/L Alkaline Phosphatase (38-126) U/L Lactate Dehydrogenase (313-618) U/L Total Creatine Kinase (55-170) U/L CK-MB (CK-2) CK-MB (CK-2) Rel Index Troponin I (0.01-0.034) ng/mL C-Reactive Protein (<1.0) mg/dL Total Protein (6.3-8.2) g/dL Albumin (3.5-5.0) g/dL Globulin (1.7-4.1) g/dL Albumin/Globulin Ratio (1.0-2.8) Lipase (23-300) U/L Carcinoembryonic Ag (0.1-3.0) ng/mL Procalcitonin 0.12 (<0.5) ng/mL Urine Color Urine Appearance Urine pH (4.5-8.0) Ur Specific Toney (1.000-1.035) Urine Protein (Negative) Urine Glucose (UA) (Negative) g/dL Urine Ketones (NEGATIVE) Urine Occult Blood (Negative) Urine Nitrate (Negative) Urine Bilirubin (NEGATIVE) Urine Urobilinogen (0.2) E.U./dL Ur Leukocyte Esterase (NEGATIVE) Urine RBC (0-5/HPF) Urine WBC (0-5/HPF) Urine Bacteria (None) Ur Culture Indicated? 07/19/18 07/19/18 07/19/18 Range/Units 16:25 16:25 16:25 WBC (4.5-11.0) X10^3/uL RBC (4.5-5.9) X10^6/uL Hgb (13.5-17.5) g/dL Hct (41-53) % MCV (80-100) fL MCH (26-34) PG MCHC (30-36) % RDW (11.6-14.8) % Plt Count (150-400) X10^3/uL Neut % (Auto) (50-75) % Lymph % (Auto) (25-40) % [place] % (Auto) (3-14) % Eos % (Auto) (2-4) % Baso % (Auto) (0-2) % Neut # (Auto) (6424-3809) /uL Lymph # (Auto) (1463-6154) /uL [place] # (Auto) (0-900) /uL Eos # (Auto) (0-450) /uL Baso # (Auto) (0-100) /uL Platelet Estimate RBC Morphology ESR 85 H (0-15) MM/HR Percent Retic (0.87-2.60) % PT (10.1-12.7) SECONDS INR (0.9-1.3) APTT (26.4-36.2) SECONDS Sodium 139 (137-145) mmol/L Potassium 4.0 (3.4-5.1) mmol/L Chloride 100 (98-107) mmol/L Carbon Dioxide 26 (22-32) mmol/L BUN 13 (9-20) mg/dL Creatinine 0.80 (0.66-1.25) mg/dL Estimated GFR > 60.0 (>60) mL/min BUN/Creatinine Ratio 16.3 (6-22) Glucose 105 H (70-100) mg/dL Lactate 1.7 (0.7-2.1) mmol/L Calcium 9.0 (8.4-10.2) mg/dL Iron (49-181) ug/dL TIBC (261-462) ug/dL % Saturation (20-50) % Transferrin (206-381) mg/dL Ferritin (17.9-464) ng/mL Total Bilirubin 0.7 (0.2-1.3) mg/dL AST 33 (17-59) IU/L ALT 34 (21-72) IU/L Alkaline Phosphatase 93 (38-126) U/L Lactate Dehydrogenase (313-618) U/L Total Creatine Kinase (55-170) U/L CK-MB (CK-2) CK-MB (CK-2) Rel Index Troponin I (0.01-0.034) ng/mL C-Reactive Protein (<1.0) mg/dL Total Protein 7.8 (6.3-8.2) g/dL Albumin 3.4 L (3.5-5.0) g/dL Globulin 4.4 H (1.7-4.1) g/dL Albumin/Globulin Ratio 0.8 L (1.0-2.8) Lipase 19 L (23-300) U/L Carcinoembryonic Ag (0.1-3.0) ng/mL Procalcitonin (<0.5) ng/mL Urine Color Urine Appearance Urine pH (4.5-8.0) Ur Specific [place]oney (1.000-1.035) Urine Protein (Negative) Urine Glucose (UA) (Negative) g/dL Urine Ketones (NEGATIVE) Urine Occult Blood (Negative) Urine Nitrate (Negative) Urine Bilirubin (NEGATIVE) Urine Urobilinogen (0.2) E.U./dL Ur Leukocyte Esterase (NEGATIVE) Urine RBC (0-5/HPF) Urine WBC (0-5/HPF) Urine Bacteria (None) Ur Culture Indicated? 07/19/18 07/19/18 07/19/18 Range/Units 16:25 16:25 16:25 WBC (4.5-11.0) X10^3/uL RBC (4.5-5.9) X10^6/uL Hgb (13.5-17.5) g/dL Hct (41-53) % MCV (80-100) fL MCH (26-34) PG MCHC (30-36) % RDW (11.6-14.8) % Plt Count (150-400) X10^3/uL Neut % (Auto) (50-75) % Lymph % (Auto) (25-40) % [place] % (Auto) (3-14) % Eos % (Auto) (2-4) % Baso % (Auto) (0-2) % Neut # (Auto) (2510-4041) /uL Lymph # (Auto) (0339-2008) /uL [place] # (Auto) (0-900) /uL Eos # (Auto) (0-450) /uL Baso # (Auto) (0-100) /uL Platelet Estimate RBC Morphology ESR (0-15) MM/HR Percent Retic (0.87-2.60) % PT (10.1-12.7) SECONDS INR (0.9-1.3) APTT (26.4-36.2) SECONDS Sodium (137-145) mmol/L Potassium (3.4-5.1) mmol/L Chloride (98-107) mmol/L Carbon Dioxide (22-32) mmol/L BUN (9-20) mg/dL Creatinine (0.66-1.25) mg/dL Estimated GFR (>60) mL/min BUN/Creatinine Ratio (6-22) Glucose (70-100) mg/dL Lactate (0.7-2.1) mmol/L Calcium (8.4-10.2) mg/dL Iron 12 L (49-181) ug/dL TIBC 206 L (261-462) ug/dL % Saturation 6 L (20-50) % Transferrin 147 L (206-381) mg/dL Ferritin 381.0 (17.9-464) ng/mL Total Bilirubin (0.2-1.3) mg/dL AST (17-59) IU/L ALT (21-72) IU/L Alkaline Phosphatase (38-126) U/L Lactate Dehydrogenase (313-618) U/L Total Creatine Kinase < 20 L (55-170) U/L CK-MB (CK-2) TNP CK-MB (CK-2) Rel Index TNP Troponin I < 0.012 (0.01-0.034) ng/mL C-Reactive Protein 18.7 H (<1.0) mg/dL Total Protein (6.3-8.2) g/dL Albumin (3.5-5.0) g/dL Globulin (1.7-4.1) g/dL Albumin/Globulin Ratio (1.0-2.8) Lipase (23-300) U/L Carcinoembryonic Ag (0.1-3.0) ng/mL Procalcitonin (<0.5) ng/mL Urine Color Urine Appearance Urine pH (4.5-8.0) Ur Specific [place]oney (1.000-1.035) Urine Protein (Negative) Urine Glucose (UA) (Negative) g/dL Urine Ketones (NEGATIVE) Urine Occult Blood (Negative) Urine Nitrate (Negative) Urine Bilirubin (NEGATIVE) Urine Urobilinogen (0.2) E.U./dL Ur Leukocyte Esterase (NEGATIVE) Urine RBC (0-5/HPF) Urine WBC (0-5/HPF) Urine Bacteria (None) Ur Culture Indicated? 07/19/18 07/19/18 07/19/18 Range/Units 16:25 16:25 19:30 WBC (4.5-11.0) X10^3/uL RBC (4.5-5.9) X10^6/uL Hgb (13.5-17.5) g/dL Hct (41-53) % MCV (80-100) fL MCH (26-34) PG MCHC (30-36) % RDW (11.6-14.8) % Plt Count (150-400) X10^3/uL Neut % (Auto) (50-75) % Lymph % (Auto) (25-40) % [place] % (Auto) (3-14) % Eos % (Auto) (2-4) % Baso % (Auto) (0-2) % Neut # (Auto) (4143-8705) /uL Lymph # (Auto) (8971-0594) /uL [place] # (Auto) (0-900) /uL Eos # (Auto) (0-450) /uL Baso # (Auto) (0-100) /uL Platelet Estimate RBC Morphology ESR (0-15) MM/HR Percent Retic 0.8 L (0.87-2.60) % PT (10.1-12.7) SECONDS INR (0.9-1.3) APTT (26.4-36.2) SECONDS Sodium (137-145) mmol/L Potassium (3.4-5.1) mmol/L Chloride (98-107) mmol/L Carbon Dioxide (22-32) mmol/L BUN (9-20) mg/dL Creatinine (0.66-1.25) mg/dL Estimated GFR (>60) mL/min BUN/Creatinine Ratio (6-22) Glucose (70-100) mg/dL Lactate (0.7-2.1) mmol/L Calcium (8.4-10.2) mg/dL Iron (49-181) ug/dL TIBC (261-462) ug/dL % Saturation (20-50) % Transferrin (206-381) mg/dL Ferritin (17.9-464) ng/mL Total Bilirubin (0.2-1.3) mg/dL AST (17-59) IU/L ALT (21-72) IU/L Alkaline Phosphatase (38-126) U/L Lactate Dehydrogenase 605 (313-618) U/L Total Creatine Kinase (55-170) U/L CK-MB (CK-2) CK-MB (CK-2) Rel Index Troponin I (0.01-0.034) ng/mL C-Reactive Protein (<1.0) mg/dL Total Protein (6.3-8.2) g/dL Albumin (3.5-5.0) g/dL Globulin (1.7-4.1) g/dL Albumin/Globulin Ratio (1.0-2.8) Lipase (23-300) U/L Carcinoembryonic Ag < 0.3 (0.1-3.0) ng/mL Procalcitonin (<0.5) ng/mL Urine Color Yellow Urine Appearance Clear Urine pH 6.0 (4.5-8.0) Ur Specific [place]oney 1.010 (1.000-1.035) Urine Protein Negative (Negative) Urine Glucose (UA) Negative (Negative) g/dL Urine Ketones Negative (NEGATIVE) Urine Occult Blood Negative (Negative) Urine Nitrate Negative (Negative) Urine Bilirubin Negative (NEGATIVE) Urine Urobilinogen 0.2 (0.2) E.U./dL Ur Leukocyte Esterase Negative (NEGATIVE) Urine RBC None seen (0-5/HPF) Urine WBC None seen (0-5/HPF) Urine Bacteria None seen (None) Ur Culture Indicated? Cult not indicated Urine Dip Bedside Urine Glucose Negative Bedside Urine Bilirubin - Negative Bedside Urine Ketone - Negative Urine Specific Toney 1.015 Bedside Urine Occult Blood - Negative Bedside Urine pH 6.0 Bedside Urine Protein - Negative Bedside Urine Urobilinogen +/- 1mg Bedside Urine Nitrite - Negative Bedside Urine Leukocytes - Negative Esterase <Jaylyn Silvestre, DO - Last Filed: 07/20/18 03:11> Lab Data Attestation: I reviewed the patient's lab results. Lab Results 07/19/18 07/19/18 07/19/18 Range/Units 16:25 16:25 16:25 WBC 8.3 (4.5-11.0) X10^3/uL RBC 3.87 L (4.5-5.9) X10^6/uL Hgb 9.2 L (13.5-17.5) g/dL Hct 29.4 L (41-53) % MCV 75.7 L (80-100) fL MCH 23.8 L (26-34) PG MCHC 31.4 (30-36) % RDW 15.7 H (11.6-14.8) % Plt Count 856 H (150-400) X10^3/uL Neut % (Auto) 58.2 (50-75) % Lymph % (Auto) 23.1 L (25-40) % [place] % (Auto) 17.1 H (3-14) % Eos % (Auto) 0.8 L (2-4) % Baso % (Auto) 0.8 (0-2) % Neut # (Auto) 4800 (0242-7642) /uL Lymph # (Auto) 1900 (5450-0972) /uL [place] # (Auto) 1400 H (0-900) /uL Eos # (Auto) 100 (0-450) /uL Baso # (Auto) 100 (0-100) /uL Platelet Estimate Increased on smear RBC Morphology Not Reportable ESR (0-15) MM/HR Percent Retic (0.87-2.60) % PT 17.7 H (10.1-12.7) SECONDS INR 1.5 H (0.9-1.3) APTT 38 H (26.4-36.2) SECONDS Sodium (137-145) mmol/L Potassium (3.4-5.1) mmol/L Chloride (98-107) mmol/L Carbon Dioxide (22-32) mmol/L BUN (9-20) mg/dL Creatinine (0.66-1.25) mg/dL Estimated GFR (>60) mL/min BUN/Creatinine Ratio (6-22) Glucose (70-100) mg/dL Lactate (0.7-2.1) mmol/L Calcium (8.4-10.2) mg/dL Iron (49-181) ug/dL TIBC (261-462) ug/dL % Saturation (20-50) % Transferrin (206-381) mg/dL Ferritin (17.9-464) ng/mL Total Bilirubin (0.2-1.3) mg/dL AST (17-59) IU/L ALT (21-72) IU/L Alkaline Phosphatase (38-126) U/L Lactate Dehydrogenase (313-618) U/L Total Creatine Kinase (55-170) U/L CK-MB (CK-2) CK-MB (CK-2) Rel Index Troponin I (0.01-0.034) ng/mL C-Reactive Protein (<1.0) mg/dL Total Protein (6.3-8.2) g/dL Albumin (3.5-5.0) g/dL Globulin (1.7-4.1) g/dL Albumin/Globulin Ratio (1.0-2.8) Lipase (23-300) U/L Carcinoembryonic Ag (0.1-3.0) ng/mL Procalcitonin 0.12 (<0.5) ng/mL Urine Color Urine Appearance Urine pH (4.5-8.0) Ur Specific Toney (1.000-1.035) Urine Protein (Negative) Urine Glucose (UA) (Negative) g/dL Urine Ketones (NEGATIVE) Urine Occult Blood (Negative) Urine Nitrate (Negative) Urine Bilirubin (NEGATIVE) Urine Urobilinogen (0.2) E.U./dL Ur Leukocyte Esterase (NEGATIVE) Urine RBC (0-5/HPF) Urine WBC (0-5/HPF) Urine Bacteria (None) Ur Culture Indicated? 07/19/18 07/19/18 07/19/18 Range/Units 16:25 16:25 16:25 WBC (4.5-11.0) X10^3/uL RBC (4.5-5.9) X10^6/uL Hgb (13.5-17.5) g/dL Hct (41-53) % MCV (80-100) fL MCH (26-34) PG MCHC (30-36) % RDW (11.6-14.8) % Plt Count (150-400) X10^3/uL Neut % (Auto) (50-75) % Lymph % (Auto) (25-40) % [place] % (Auto) (3-14) % Eos % (Auto) (2-4) % Baso % (Auto) (0-2) % Neut # (Auto) (6506-1010) /uL Lymph # (Auto) (0184-3816) /uL [place] # (Auto) (0-900) /uL Eos # (Auto) (0-450) /uL Baso # (Auto) (0-100) /uL Platelet Estimate RBC Morphology ESR 85 H (0-15) MM/HR Percent Retic (0.87-2.60) % PT (10.1-12.7) SECONDS INR (0.9-1.3) APTT (26.4-36.2) SECONDS Sodium 139 (137-145) mmol/L Potassium 4.0 (3.4-5.1) mmol/L Chloride 100 (98-107) mmol/L Carbon Dioxide 26 (22-32) mmol/L BUN 13 (9-20) mg/dL Creatinine 0.80 (0.66-1.25) mg/dL Estimated GFR > 60.0 (>60) mL/min BUN/Creatinine Ratio 16.3 (6-22) Glucose 105 H (70-100) mg/dL Lactate 1.7 (0.7-2.1) mmol/L Calcium 9.0 (8.4-10.2) mg/dL Iron (49-181) ug/dL TIBC (261-462) ug/dL % Saturation (20-50) % Transferrin (206-381) mg/dL Ferritin (17.9-464) ng/mL Total Bilirubin 0.7 (0.2-1.3) mg/dL AST 33 (17-59) IU/L ALT 34 (21-72) IU/L Alkaline Phosphatase 93 (38-126) U/L Lactate Dehydrogenase (313-618) U/L Total Creatine Kinase (55-170) U/L CK-MB (CK-2) CK-MB (CK-2) Rel Index Troponin I (0.01-0.034) ng/mL C-Reactive Protein (<1.0) mg/dL Total Protein 7.8 (6.3-8.2) g/dL Albumin 3.4 L (3.5-5.0) g/dL Globulin 4.4 H (1.7-4.1) g/dL Albumin/Globulin Ratio 0.8 L (1.0-2.8) Lipase 19 L (23-300) U/L Carcinoembryonic Ag (0.1-3.0) ng/mL Procalcitonin (<0.5) ng/mL Urine Color Urine Appearance Urine pH (4.5-8.0) Ur Specific [place]oney (1.000-1.035) Urine Protein (Negative) Urine Glucose (UA) (Negative) g/dL Urine Ketones (NEGATIVE) Urine Occult Blood (Negative) Urine Nitrate (Negative) Urine Bilirubin (NEGATIVE) Urine Urobilinogen (0.2) E.U./dL Ur Leukocyte Esterase (NEGATIVE) Urine RBC (0-5/HPF) Urine WBC (0-5/HPF) Urine Bacteria (None) Ur Culture Indicated? 07/19/18 07/19/18 07/19/18 Range/Units 16:25 16:25 16:25 WBC (4.5-11.0) X10^3/uL RBC (4.5-5.9) X10^6/uL Hgb (13.5-17.5) g/dL Hct (41-53) % MCV (80-100) fL MCH (26-34) PG MCHC (30-36) % RDW (11.6-14.8) % Plt Count (150-400) X10^3/uL Neut % (Auto) (50-75) % Lymph % (Auto) (25-40) % [place] % (Auto) (3-14) % Eos % (Auto) (2-4) % Baso % (Auto) (0-2) % Neut # (Auto) (4560-0733) /uL Lymph # (Auto) (5374-5917) /uL [place] # (Auto) (0-900) /uL Eos # (Auto) (0-450) /uL Baso # (Auto) (0-100) /uL Platelet Estimate RBC Morphology ESR (0-15) MM/HR Percent Retic (0.87-2.60) % PT (10.1-12.7) SECONDS INR (0.9-1.3) APTT (26.4-36.2) SECONDS Sodium (137-145) mmol/L Potassium (3.4-5.1) mmol/L Chloride (98-107) mmol/L Carbon Dioxide (22-32) mmol/L BUN (9-20) mg/dL Creatinine (0.66-1.25) mg/dL Estimated GFR (>60) mL/min BUN/Creatinine Ratio (6-22) Glucose (70-100) mg/dL Lactate (0.7-2.1) mmol/L Calcium (8.4-10.2) mg/dL Iron 12 L (49-181) ug/dL TIBC 206 L (261-462) ug/dL % Saturation 6 L (20-50) % Transferrin 147 L (206-381) mg/dL Ferritin 381.0 (17.9-464) ng/mL Total Bilirubin (0.2-1.3) mg/dL AST (17-59) IU/L ALT (21-72) IU/L Alkaline Phosphatase (38-126) U/L Lactate Dehydrogenase (313-618) U/L Total Creatine Kinase < 20 L (55-170) U/L CK-MB (CK-2) TNP CK-MB (CK-2) Rel Index TNP Troponin I < 0.012 (0.01-0.034) ng/mL C-Reactive Protein 18.7 H (<1.0) mg/dL Total Protein (6.3-8.2) g/dL Albumin (3.5-5.0) g/dL Globulin (1.7-4.1) g/dL Albumin/Globulin Ratio (1.0-2.8) Lipase (23-300) U/L Carcinoembryonic Ag (0.1-3.0) ng/mL Procalcitonin (<0.5) ng/mL Urine Color Urine Appearance Urine pH (4.5-8.0) Ur Specific Toney (1.000-1.035) Urine Protein (Negative) Urine Glucose (UA) (Negative) g/dL Urine Ketones (NEGATIVE) Urine Occult Blood (Negative) Urine Nitrate (Negative) Urine Bilirubin (NEGATIVE) Urine Urobilinogen (0.2) E.U./dL Ur Leukocyte Esterase (NEGATIVE) Urine RBC (0-5/HPF) Urine WBC (0-5/HPF) Urine Bacteria (None) Ur Culture Indicated? 07/19/18 07/19/18 07/19/18 Range/Units 16:25 16:25 19:30 WBC (4.5-11.0) X10^3/uL RBC (4.5-5.9) X10^6/uL Hgb (13.5-17.5) g/dL Hct (41-53) % MCV (80-100) fL MCH (26-34) PG MCHC (30-36) % RDW (11.6-14.8) % Plt Count (150-400) X10^3/uL Neut % (Auto) (50-75) % Lymph % (Auto) (25-40) % [place] % (Auto) (3-14) % Eos % (Auto) (2-4) % Baso % (Auto) (0-2) % Neut # (Auto) (0256-8406) /uL Lymph # (Auto) (9216-8268) /uL [place] # (Auto) (0-900) /uL Eos # (Auto) (0-450) /uL Baso # (Auto) (0-100) /uL Platelet Estimate RBC Morphology ESR (0-15) MM/HR Percent Retic 0.8 L (0.87-2.60) % PT (10.1-12.7) SECONDS INR (0.9-1.3) APTT (26.4-36.2) SECONDS Sodium (137-145) mmol/L Potassium (3.4-5.1) mmol/L Chloride (98-107) mmol/L Carbon Dioxide (22-32) mmol/L BUN (9-20) mg/dL Creatinine (0.66-1.25) mg/dL Estimated GFR (>60) mL/min BUN/Creatinine Ratio (6-22) Glucose (70-100) mg/dL Lactate (0.7-2.1) mmol/L Calcium (8.4-10.2) mg/dL Iron (49-181) ug/dL TIBC (261-462) ug/dL % Saturation (20-50) % Transferrin (206-381) mg/dL Ferritin (17.9-464) ng/mL Total Bilirubin (0.2-1.3) mg/dL AST (17-59) IU/L ALT (21-72) IU/L Alkaline Phosphatase (38-126) U/L Lactate Dehydrogenase 605 (313-618) U/L Total Creatine Kinase (55-170) U/L CK-MB (CK-2) CK-MB (CK-2) Rel Index Troponin I (0.01-0.034) ng/mL C-Reactive Protein (<1.0) mg/dL Total Protein (6.3-8.2) g/dL Albumin (3.5-5.0) g/dL Globulin (1.7-4.1) g/dL Albumin/Globulin Ratio (1.0-2.8) Lipase (23-300) U/L Carcinoembryonic Ag < 0.3 (0.1-3.0) ng/mL Procalcitonin (<0.5) ng/mL Urine Color Yellow Urine Appearance Clear Urine pH 6.0 (4.5-8.0) Ur Specific [place] 1.010 (1.000-1.035) Urine Protein Negative (Negative) Urine Glucose (UA) Negative (Negative) g/dL Urine Ketones Negative (NEGATIVE) Urine Occult Blood Negative (Negative) Urine Nitrate Negative (Negative) Urine Bilirubin Negative (NEGATIVE) Urine Urobilinogen 0.2 (0.2) E.U./dL Ur Leukocyte Esterase Negative (NEGATIVE) Urine RBC None seen (0-5/HPF) Urine WBC None seen (0-5/HPF) Urine Bacteria None seen (None) Ur Culture Indicated? Cult not indicated Urine Dip Bedside Urine Glucose Negative Bedside Urine Bilirubin - Negative Bedside Urine Ketone - Negative Urine Specific [place]oney 1.015 Bedside Urine Occult Blood - Negative Bedside Urine pH 6.0 Bedside Urine Protein - Negative Bedside Urine Urobilinogen +/- 1mg Bedside Urine Nitrite - Negative Bedside Urine Leukocytes - Negative Esterase Imaging Data CT scan - abdomen: Radiologist's impression: PROCEDURE: CT CHEST ABD PEL W CON INDICATIONS: anemia, thrombocytosis, per heme/onc TECHNIQUE: After the administration of oral and intravenous contrast, 5 mm thick sections acquired from the lung apices to the symphysis. 5 mm coronal and sagittal reformats were performed, with additional 7 mm coronal MIP reformats through the lungs. For radiation dose reduction, the following was used: automated exposure control, adjustment of mA and/or kV according to patient size. COMPARISON: None. FINDINGS: Image quality: Excellent. CHEST: Lungs and pleura: No acute airspace opacities. No pleural effusions or pneumothorax. Central and peripheral airways appear patent and normal in caliber. Mediastinum: Heart size is normal. No pericardial effusion. No mediastinal or hilar adenopathy by size criteria. Thoracic aorta and central pulmonary arteries are normal in size. Esophagus is normal in caliber. No hiatal hernia. Chest wall: No axillary or supraclavicular adenopathy by size criteria. Thyroid gland is unremarkable. ABDOMEN: Solid organs: Liver is normal in size and enhancement. Gallbladder is unremarkable with. Biliary system is non dilated. Pancreas enhances normally. Spleen is normal in size and enhancement. No adrenal nodules. Kidneys demonstrate normal size and enhancement, without hydronephrosis. Peritoneum and bowel: Bowel loops demonstrate normal wall thickness and caliber. No free fluid or air. Nodes and vessels: No retroperitoneal or mesenteric adenopathy by size criteria. Aorta and inferior vena cava are normal in size. Miscellaneous: No ventral hernias. PELVIS: Genitourinary: Bladder wall thickness is normal. Bladder is distended. Miscellaneous: No inguinal hernias or adenopathy. Bones: No suspicious bony lesions. No vertebral body compression fractures. IMPRESSION: 1. Distended bladder without bladder wall thickening. 2. No other significant findings in the chest, abdomen, and pelvis. Whole Dictated by: Jonathan Aldridge M.D. on 07/19/2018 at 19:46 [facility] Narrative Medical decision making narrative: I received sign-out from Dr. Cristi romo shift provider. Awaiting CT results. Seen and evaluated patient by self. Overall appears well nontoxic seemed comfortable. CT is essentially negative. oncology recommend close outpatient followup he is happy to see him tomorrow in the clinic for IV iron infusion. However due to patient's insurance he will need a referral. I have discussed at length with patient that he needs further workup and evaluation. Possible colonoscopy and EGD as well. he understands. Discharge Plan Departure Patient Disposition: Home Clinical Impression: Anemia Qualifiers: Anemia type: iron deficiency Iron deficiency anemia type: unspecified iron deficiency Qualified Code(s): D50.9 - Iron deficiency anemia, unspecified Discharge Date/Time: 07/19/18 20:47 Interventions: ED Discharge Assessment Last Done: 07/19/18 20:46 Instructions: Anemia Activity Restrictions/Additional Instructions: *You have been diagnosed with anemia *What to do: It Is imperative that he follow up with Hematology. You will need iron transfusion possibly more workup. He will also need a referral from [place]. *Continue to take medications as directed *Follow up with your primary care provider in 2-3 days *Return to ER if you should have increased weakness, bloody stool, increased pain or any new, worsening or concerning symptoms Prescriptions: No Action acetaminophen 1 dose PO PRN PRN (Reason: pain) RF: 0 naproxen 1 dose PO PRN PRN (Reason: pain) RF: 0 Referrals: [facility] [Outside] Rosemary Cisse MD [Physician] -
[2018-07-19 17:33] LABS: Percent Iron Saturation 6 % (20-50); Total Iron Binding Capacity 206 ug/dL (261-462); Transferrin 147 mg/dL (206-381)
--- NOTE | 2018-07-19 17:58 | DI.CT.S_ITS ---
PROCEDURE: CT CHEST ABD PEL W CON INDICATIONS: anemia, thrombocytosis, per heme/onc TECHNIQUE: After the administration of oral and intravenous contrast, 5 mm thick sections acquired from the lung apices to the symphysis. 5 mm coronal and sagittal reformats were performed, with additional 7 mm coronal MIP reformats through the lungs. For radiation dose reduction, the following was used: automated exposure control, adjustment of mA and/or kV according to patient size. COMPARISON: None. FINDINGS: Image quality: Excellent. CHEST: Lungs and pleura: No acute airspace opacities. No pleural effusions or pneumothorax. Central and peripheral airways appear patent and normal in caliber. Mediastinum: Heart size is normal. No pericardial effusion. No mediastinal or hilar adenopathy by size criteria. Thoracic aorta and central pulmonary arteries are normal in size. Esophagus is normal in caliber. No hiatal hernia. Chest wall: No axillary or supraclavicular adenopathy by size criteria. Thyroid gland is unremarkable. ABDOMEN: Solid organs: Liver is normal in size and enhancement. Gallbladder is unremarkable with. Biliary system is non dilated. Pancreas enhances normally. Spleen is normal in size and enhancement. No adrenal nodules. Kidneys demonstrate normal size and enhancement, without hydronephrosis. Peritoneum and bowel: Bowel loops demonstrate normal wall thickness and caliber. No free fluid or air. Nodes and vessels: No retroperitoneal or mesenteric adenopathy by size criteria. Aorta and inferior vena cava are normal in size. Miscellaneous: No ventral hernias. PELVIS: Genitourinary: Bladder wall thickness is normal. Bladder is distended. Miscellaneous: No inguinal hernias or adenopathy. Bones: No suspicious bony lesions. No vertebral body compression fractures. IMPRESSION: 1. Distended bladder without bladder wall thickening. 2. No other significant findings in the chest, abdomen, and pelvis. Whole Dictated by: Jonathan Aldridge M.D. on 07/19/2018 at 19:46 Approved by: Jonathan Aldridge M.D. on 07/19/2018 at 19:51
[2018-07-19 18:14] LABS: Lactate Dehydrogenase 605 U/L (313-618)
[2018-07-19 18:16] LABS: Reticulocyte Count, Percent 0.8 % (0.87-2.60)
[2018-07-19 18:46] LABS: Carcinoembryonic Antigen < 0.3 ng/mL (0.1-3.0)
[2018-07-19 19:00] VITALS: BP 116/75; PULSE 80; RESP 16; O2SAT 100
[2018-07-19 19:50] LABS: Bacteria Urine None Seen; RBC Urine None Seen (0-5/HPF); WBC Urine None Seen (0-5/HPF)
[2018-07-19 19:51] LABS: Appearance Urine UA CLEAR; Bilirubin Urine UA NEGATIVE (NEGATIVE); Color Urine UA YELLOW; Glucose Urine UA NEGATIVE (Negative); Ketones Urine UA NEGATIVE (NEGATIVE); Leukocyte Esterase Urine UA NEGATIVE (NEGATIVE); Nitrite Urine UA NEGATIVE (Negative); Occult Blood Urine UA NEGATIVE (Negative); Protein Urine UA NEGATIVE (Negative); Urobilinogen Urine UA 0.2 E.U./dL (0.2)
[2018-07-19 20:07] VITALS: BP 113/72; PULSE 74; RESP 16; O2SAT 100
[2018-07-19 20:10] LABS: Culture Indicated Urine Cult Not Indicated
[2018-07-21 14:40] LABS: Haptoglobin 641 mg/dL (43-212)
== END 2018-07-19 20:47 | disposition home or self-care (01) ==
PROVIDERS: Emergency Medicine; Emergency Provider Emergency Medicine
DX: D50.9 Iron deficiency anemia, unspecified (principal); M25.462 Effusion, left knee; M25.461 Effusion, right knee; M25.432 Effusion, left wrist; M25.431 Effusion, right wrist; R61 Generalized hyperhidrosis; R50.9 Fever, unspecified
CPT/HCPCS: 36415; 36591; 71045; 71260; 74177; 80053; 81001; 81003; 82378; 82550; 82728; 83010; 83540; 83550; 83605; 83615; 83690; 84145; 84484; 85025; 85045; 85610; 85651; 85730; 86140; 87040; 93005; 99283; 99285; Q9967

== ENCOUNTER → 2018-08-24 14:40 | Oncology outpatient (ONC) | payer OTHER, SELFPAY ==
[2018-07-27 15:19] VITALS: BP 131/88; PULSE 95; RESP 18; TEMP 36.6; O2SAT 100
--- NOTE | 2018-07-27 15:23 | ONC.CONS ---
History of Present Illness - Data of Consult Patient: new to practice Consult date: 07/27/18 Requesting Physician: Reji Gonzáles Primary Care Provider: Reji Gonzáles - Consult Narrative Reason for consult: Anemia Narrative: Mitchell Tobar is a 27 year old male without any previous medical problems. He developed pain and swelling of the bilateral wrists and knees in March of 2018 which has become progressively worse. He was seen by office clinic and was evaluated by Dr. Reji Gonzáles on July 19, 2018. The lab tests showed WBC 8.7, hemoglobin 9.8, hematocrit 29.7, MCV 75.3, RDW 15.4, platelets 948. Therefore he was sent to emergency room at [facility] where repeat test showed WBC 8.3, hemoglobin 9.2, hematocrit 29.4, MCV 75.7, MCH 23.8, RDW 15.7, platelets 856, sodium 139, potassium 4.0, BUN 13, creatinine 0.8, glucose 1 hold 5, calcium 9.0, iron 12, TIBC 206, iron saturation 6%, transferrin 147, ferritin 381, total bilirubin 0.7, AST 33, ALT 34. CEA level less than 0.3, LDH 605. CT of the chest abdomen and pelvis no abnormal findings in the chest, abdomen, and pelvis. On 07/21/2018, patient was evaluated by Dr. Sarabjit Arciniega at [facility]. Rheumatoid arthritis was entertained and patient was started on methotrexate 20 mg weekly and prednisone 20 mg once a day. Since then patient has joint pain and swelling have improved significantly. He reports no fever, no chills, no nausea, no vomiting, no blood in the stool and no in the urine. He reports normal appetite, and stable weight. CC: Rosemary Cisse MD Patient reports pain?: Yes Home Medications and Allergies Home Medications Medication Instructions Recorded Confirmed Type acetaminophen 650 mg PO PRN PRN 07/19/18 07/27/18 History ferrous sulfate [iron] 325 mg PO DAILY #60 tab 07/27/18 Rx methotrexate sodium 20 mg WEEKLY 07/27/18 07/27/18 History naproxen sodium 1,000 mg PO DAILY 07/27/18 07/27/18 History prednisone 20 mg PO DAILY 07/27/18 07/27/18 History Allergies Allergy/AdvReac Type Severity Reaction Status Date / Time Penicillins Allergy Verified 07/19/18 17:07 Medical History - Social History Smoking Status: Never smoker Review of Systems - Patient Self-Reported Symptoms SR Musculoskeletal issues: Joint pain or swelling Exam Vital signs: Last Vital Signs Temp 98 F 07/27/18 15:19 Pulse 95 H 07/27/18 15:19 Resp 18 07/27/18 15:19 BP 131/88 07/27/18 15:19 Pulse Ox 100 07/27/18 15:19 ECOG 0 Narrative: Gen: WDWN, NAD, pleasant and cooperative. Came here alone. HEENT: NCAT, EOMI, PERRLA, anicteric sclera. Neck: Supple, No palpable thyromegaly or lymphadenopathy. Respiratory: CTAB, no wheezes audible. No JVD Cardiovascular: RRR, S1 and S2 normal, no M/G/R. Abdomen: Soft, NTND, BS normal, no palpable organomegaly Extremities: No LE pitting edema. Lymphatic: no palpable lymph nodes in the neck, axillae, or groins. Neurological: AOx3, CN II-XII grossly intact. No focal motor or sensory deficit. Psychiatric: Good judgment and insight; normal affect; normal thought process; cooperative, no depression, no anxiety. Results - Labs Pending. Assessment and Plan (1) Anemia Overview: Microcytic hypochromic anemia instantly identified during workup for polyarthralgia in July of 2018. No weight loss, no gastrointestinal symptoms, no family history of cancer. No family history of anemia. Assessment: His ferritin level was elevated reflecting concurrent rheumatoid arthritic inflammation. Otherwise the serum iron, saturation, and total iron binding capacity is are all consistent with iron deficiency anemia. Patient has a decreased retic cell count which indicated if of hypofunction of the bone marrow due to possibly iron deficiency. I explained to the patient that iron deficiency usually is caused by bleeding. The most common source of bleeding is through gastrointestinal systems. I will refer the patient to surgery for possible colonoscopy evaluation. Plan: 1. Repeat CBC, CMP, Iron panel, Ferritin, B12, Folate 2. Referral to Surgical Department for C-scope 3. Ferrous sulfate 325 mg (65mg) daily 4. RTC in 4 week, CBC,CMP, Iron panel (2) Polyarthritis His polyarthralgia is thought to be consistent with possible rheumatoid arthritis. Patient currently is being followed by Dr. Arciniega at [facility]. Patient is getting methotrexate as well as prednisone treatment. (1) Anemia Anemia type: iron deficiency Iron deficiency anemia type: unspecified iron deficiency
--- NOTE | 2018-07-27 15:32 | P.CONONC_ITS ---
History of Present Illness - Data of Consult Patient: new to practice Consult date: 07/27/18 Requesting Physician: Reji Gonzáles Primary Care Provider: Reji Gonzáles - Consult Narrative Reason for consult: Anemia Narrative: Mitchell Tobar is a 27 year old male without any previous medical problems. He developed pain and swelling of the bilateral wrists and knees in March of 2018 which has become progressively worse. He was seen by office clinic and was evaluated by Dr. Reji Gonzáles on July 19, 2018. The lab tests showed WBC 8.7, hemoglobin 9.8, hematocrit 29.7, MCV 75.3, RDW 15.4, platelets 948. Therefore he was sent to emergency room at [facility] where repeat test showed WBC 8.3, hemoglobin 9.2, hematocrit 29.4, MCV 75.7, MCH 23.8, RDW 15.7, platelets 856, sodium 139, potassium 4.0, BUN 13, creatinine 0.8, glucose 1 hold 5, calcium 9.0, iron 12, TIBC 206, iron saturation 6%, transferrin 147, ferritin 381, total bilirubin 0.7, AST 33, ALT 34. CEA level less than 0.3, LDH 605. CT of the chest abdomen and pelvis no abnormal findings in the chest, abdomen, and pelvis. On 07/21/2018, patient was evaluated by Dr. Sarabjit Arciniega at [facility]. Rheumatoid arthritis was entertained and patient was started on methotrexate 20 mg weekly and prednisone 20 mg once a day. Since then patient has joint pain and swelling have improved significantly. He reports no fever, no chills, no nausea, no vomiting, no blood in the stool and no in the urine. He reports normal appetite, and stable weight. CC: Rosemary Cisse MD Patient reports pain?: Yes Home Medications and Allergies Home Medications Medication Instructions Recorded Confirmed Type acetaminophen 650 mg PO PRN PRN 07/19/18 07/27/18 History ferrous sulfate [iron] 325 mg PO DAILY #60 tab 07/27/18 Rx methotrexate sodium 20 mg WEEKLY 07/27/18 07/27/18 History naproxen sodium 1,000 mg PO DAILY 07/27/18 07/27/18 History prednisone 20 mg PO DAILY 07/27/18 07/27/18 History Allergies Allergy/AdvReac Type Severity Reaction Status Date / Time Penicillins Allergy Verified 07/19/18 17:07 Medical History - Social History Smoking Status: Never smoker Review of Systems - Patient Self-Reported Symptoms SR Musculoskeletal issues: Joint pain or swelling Exam Vital signs: Last Vital Signs Temp 98 F 07/27/18 15:19 Pulse 95 H 07/27/18 15:19 Resp 18 07/27/18 15:19 BP 131/88 07/27/18 15:19 Pulse Ox 100 07/27/18 15:19 ECOG 0 Narrative: Gen: WDWN, NAD, pleasant and cooperative. Came here alone. HEENT: NCAT, EOMI, PERRLA, anicteric sclera. Neck: Supple, No palpable thyromegaly or lymphadenopathy. Respiratory: CTAB, no wheezes audible. No JVD Cardiovascular: RRR, S1 and S2 normal, no M/G/R. Abdomen: Soft, NTND, BS normal, no palpable organomegaly Extremities: No LE pitting edema. Lymphatic: no palpable lymph nodes in the neck, axillae, or groins. Neurological: AOx3, CN II-XII grossly intact. No focal motor or sensory deficit. Psychiatric: Good judgment and insight; normal affect; normal thought process; cooperative, no depression, no anxiety. Results - Labs Pending. Assessment and Plan (1) Anemia Overview: Microcytic hypochromic anemia instantly identified during workup for polyarthralgia in July of 2018. No weight loss, no gastrointestinal symptoms, no family history of cancer. No family history of anemia. Assessment: His ferritin level was elevated reflecting concurrent rheumatoid arthritic inflammation. Otherwise the serum iron, saturation, and total iron binding capacity is are all consistent with iron deficiency anemia. Patient has a decreased retic cell count which indicated if of hypofunction of the bone marrow due to possibly iron deficiency. I explained to the patient that iron deficiency usually is caused by bleeding. The most common source of bleeding is through gastrointestinal systems. I will refer the patient to surgery for possible colonoscopy evaluation. Plan: 1. Repeat CBC, CMP, Iron panel, Ferritin, B12, Folate 2. Referral to Surgical Department for C-scope 3. Ferrous sulfate 325 mg (65mg) daily 4. RTC in 4 week, CBC,CMP, Iron panel (2) Polyarthritis His polyarthralgia is thought to be consistent with possible rheumatoid arthritis. Patient currently is being followed by Dr. Arciniega at [facility]. Patient is getting methotrexate as well as prednisone treatment. (1) Anemia Anemia type: iron deficiency Iron deficiency anemia type: unspecified iron deficiency
[2018-07-27 16:23] LABS: Hematocrit 30.6 % (41-53); Hemoglobin 9.8 g/dL (13.5-17.5); Mean Corpuscular Hemoglobin 24.5 PG (26-34); Mean Corpuscular Volume 76.6 fL (80-100); Platelet Count 900 X10^3/uL (150-400); Red Cell Distribution Width 15.9 % (11.6-14.8); White Blood Cell Count 11.4 X10^3/uL (4.5-11.0)
[2018-07-27 16:25] LABS: Add Manual Diff / Slide Review YES
[2018-07-27 16:42] LABS: Anisocytosis 2+; Neutrophils Absolute Manual 6042 /uL (3000-5900); Platelet Estimate Increased on smear; Total Cells Counted 100
[2018-07-27 17:37] LABS: HEMOLYSIS < 15 (0-50); Iron 71 ug/dL (49-181)
[2018-07-27 17:38] LABS: Alanine Aminotransferase 106 IU/L (21-72); Albumin 3.8 g/dL (3.5-5.0); Albumin Globulin Ratio 1.1 (1.0-2.8); Alkaline Phosphatase 82 U/L (38-126); Aspartate Aminotransferase 25 IU/L (17-59); BUN Creatinine Ratio 31.4 (6-22); Bilirubin Total 0.4 mg/dL (0.2-1.3); Blood Urea Nitrogen 22 mg/dL (9-20); Calcium 9.3 mg/dL (8.4-10.2); Carbon Dioxide 25 mmol/L (22-32); Chloride 102 mmol/L (98-107); Estimated Glomerular Filt Rate > 60.0 mL/min (>60); Globulin 3.4 g/dL (1.7-4.1); Glucose 102 mg/dL (70-100); HEMOLYSIS < 15 (0-50); Potassium 5.1 mmol/L (3.4-5.1); Sodium 138 mmol/L (137-145); Total Protein 7.2 g/dL (6.3-8.2)
[2018-07-27 17:47] LABS: Percent Iron Saturation 22 % (20-50); Total Iron Binding Capacity 323 ug/dL (261-462); Transferrin 262 mg/dL (206-381)
[2018-07-27 18:47] LABS: Vitamin B12 526 pg/mL (239-931)
--- NOTE | 2018-08-02 08:42 | ONC.SCHED ---
Surgery consult-Dr. Cisse put in an order for a colonoscpy. I submitted authorization for the patient to go to [facility]. Upon checking for approval the [employer] base submitted to send pt over to Dr. Latif as [facility] and it has been approved and they are handling this. I shredded my authorization.
[2018-08-24 14:55] VITALS: BP 137/73; PULSE 82; RESP 16; TEMP 36.4; O2SAT 100
[2018-08-24 15:10] LABS: Add Manual Diff / Slide Review NO; Basophils Absolute Auto 100 /uL (0-100); Basophils Percent Auto 0.9 % (0-2); Eosinophils Absolute Auto 100 /uL (0-450); Eosinophils Percent Auto 0.9 % (2-4); Hematocrit 39.2 % (41-53); Hemoglobin 12.9 g/dL (13.5-17.5); Lymphocytes Absolute Auto 2700 /uL (1100-4500); Lymphocytes Percent Auto 34.5 % (25-40); Mean Corpuscular HGB Conc 32.9 % (30-36); Mean Corpuscular Hemoglobin 27.6 PG (26-34); Mean Corpuscular Volume 83.9 fL (80-100); Monocytes Absolute Auto 800 /uL (0-900); Monocytes Percent Auto 10.1 % (3-14); Neutrophils Absolute Auto 4100 /uL (1500-7000); Neutrophils Percent Auto 53.6 % (50-75); Platelet Count 415 X10^3/uL (150-400); Red Blood Cell Count 4.67 X10^6/uL (4.5-5.9); Red Cell Distribution Width 27.5 % (11.6-14.8); White Blood Cell Count 7.7 X10^3/uL (4.5-11.0)
--- NOTE | 2018-08-24 15:18 | ONC.PN ---
PN -Subjective Interval history: Diagnosis: Anemia Interval history: The patient is a 27-year-old man who was recently diagnosed with rheumatoid arthritis. He is also noted to have a mild to moderate anemia with low iron but a high ferritin. For his arthritis, he started on methotrexate and prednisone. He is currently taking 20 mg a day of the prednisone. He notes that his arthritis has markedly improved. He also started taking iron 1 tablet daily. He has been tolerating it without any GI upset. He denies any shortness of breath or cough. No dizziness or lightheadedness. He has not had any unusual bleeding or bruising. He did have a colonoscopy done that did not show any bleeding source. He is otherwise without complaint today. - Patient Self-Reported Symptoms SR Musculoskeletal issues: Joint pain or swelling Home Medications and Allergies Home Medications Medication Instructions Recorded Confirmed Type acetaminophen 650 mg PO PRN PRN 07/19/18 08/24/18 History ferrous sulfate [iron] 325 mg PO DAILY #60 tab 07/27/18 08/24/18 Rx methotrexate sodium 20 mg WEEKLY 07/27/18 08/24/18 History naproxen sodium 1,000 mg PO DAILY 07/27/18 08/24/18 History prednisone 20 mg PO DAILY 07/27/18 08/24/18 History Allergies Allergy/AdvReac Type Severity Reaction Status Date / Time Penicillins Allergy Verified 07/19/18 17:07 Exam Vital signs: Vital Signs Temp Pulse Resp BP Pulse Ox 08/24/18 14:55 97.5 F L 82 16 137/73 100 Intake and Output 08/23/18 08/24/18 08/24/18 23:59 07:59 15:59 Other: Weight 72.6 kg Patient Weight 08/24/18 23:59 Weight 72.6 kg - Constitutional positive no acute distress, positive average body habitus - Routine HEENT Exam Head: Present: normocephalic, atraumatic Eye: Present: EOMI, PERRL. Absent: conjunctival icterus, scleral injection ENT: Present: mucous membranes moist, oropharynx clear - Routine Neck Exam Present: supple. Absent: lymphadenopathy, thyromegaly - Routine Respiratory Exam Present: Clear to auscultation bilaterally. Absent: rales, wheezes - Routine Cardiovascular Exam Present: RRR, S1, S2. Absent: murmur - Routine Abdominal Exam Present: soft, normoactive bowel sounds. Absent: tenderness, organomegaly, mass - Routine Extremities Exam Absent: cyanosis, clubbing, edema - Routine Back/Spine Exam Back/Spine: Absent: vertebral tenderness - Routine Skin Exam Present: intact. Absent: petechiae, rash - Routine Neurological Exam Present: alert, oriented X3 - Routine Psychiatric Exam Present: normal affect, normal thought process Results - Labs Laboratory Last Values WBC 7.7 X10^3/uL (4.5-11.0) 08/24/18 14:50 RBC 4.67 X10^6/uL (4.5-5.9) 08/24/18 14:50 Hgb 12.9 g/dL (13.5-17.5) L 08/24/18 14:50 Hct 39.2 % (41-53) L 08/24/18 14:50 MCV 83.9 fL (80-100) 08/24/18 14:50 MCH 27.6 PG (26-34) 08/24/18 14:50 MCHC 32.9 % (30-36) 08/24/18 14:50 RDW 27.5 % (11.6-14.8) H 08/24/18 14:50 Plt Count 415 X10^3/uL (150-400) H 08/24/18 14:50 Neut % (Auto) 53.6 % (50-75) 08/24/18 14:50 Lymph % (Auto) 34.5 % (25-40) 08/24/18 14:50 Maries % (Auto) 10.1 % (3-14) 08/24/18 14:50 Eos % (Auto) 0.9 % (2-4) L 08/24/18 14:50 Baso % (Auto) 0.9 % (0-2) 08/24/18 14:50 Neut # (Auto) 4100 /uL (8108-3665) 08/24/18 14:50 Lymph # (Auto) 2700 /uL (0103-7286) 08/24/18 14:50 Maries # (Auto) 800 /uL (0-900) 08/24/18 14:50 Eos # (Auto) 100 /uL (0-450) 08/24/18 14:50 Baso # (Auto) 100 /uL (0-100) 08/24/18 14:50 Total Counted 100 07/27/18 16:06 Seg Neutrophils % 52.0 % (38-70) 07/27/18 16:06 Band Neutrophils % 1.0 % (3-7) L 07/27/18 16:06 Lymphocytes % (Manual) 34.0 % (25-45) 07/27/18 16:06 Atypical Lymphs % 5.0 % (-0) H 07/27/18 16:06 Monocytes % (Manual) 8.0 % (2-11) 07/27/18 16:06 Neutrophils # (Manual) 6042 /uL (2199-6471) H 07/27/18 16:06 Platelet Estimate Increased on smear 07/27/18 16:06 RBC Morphology Not Reportable 07/27/18 16:06 Anisocytosis 2+ H 07/27/18 16:06 Sodium 138 mmol/L (137-145) 07/27/18 16:06 Potassium 5.1 mmol/L (3.4-5.1) 07/27/18 16:06 Chloride 102 mmol/L (98-107) 07/27/18 16:06 Carbon Dioxide 25 mmol/L (22-32) 07/27/18 16:06 BUN 22 mg/dL (9-20) H 07/27/18 16:06 Creatinine 0.70 mg/dL (0.66-1.25) 07/27/18 16:06 Estimated GFR > 60.0 mL/min (>60) 07/27/18 16:06 BUN/Creatinine Ratio 31.4 (6-22) H 07/27/18 16:06 Glucose 102 mg/dL (70-100) H 07/27/18 16:06 Calcium 9.3 mg/dL (8.4-10.2) 07/27/18 16:06 Iron 71 ug/dL (49-181) 07/27/18 16:06 TIBC 323 ug/dL (261-462) 07/27/18 16:06 % Saturation 22 % (20-50) 07/27/18 16:06 Transferrin 262 mg/dL (206-381) 07/27/18 16:06 Ferritin 261.0 ng/mL (17.9-464) 07/27/18 16:06 Total Bilirubin 0.4 mg/dL (0.2-1.3) 07/27/18 16:06 AST 25 IU/L (17-59) 07/27/18 16:06 ALT 106 IU/L (21-72) H 07/27/18 16:06 Alkaline Phosphatase 82 U/L (38-126) 07/27/18 16:06 Total Protein 7.2 g/dL (6.3-8.2) 07/27/18 16:06 Albumin 3.8 g/dL (3.5-5.0) 07/27/18 16:06 Globulin 3.4 g/dL (1.7-4.1) 07/27/18 16:06 Albumin/Globulin Ratio 1.1 (1.0-2.8) 07/27/18 16:06 Vitamin B12 526 pg/mL (239-931) 07/27/18 16:06 Folate 4.0 ng/mL (2.76-20.0) 07/27/18 16:06 Assessment and Plan (1) Anemia Overview: Microcytic hypochromic anemia instantly identified during workup for polyarthralgia in July of 2018. No weight loss, no gastrointestinal symptoms, no family history of cancer. No family history of anemia. Assessment: 27-year-old man with a history of anemia. His red cell count has markedly improved with the oral iron. He will continue treatment for 1-2 months and then stop his iron replacement. I think he can follow up with his lead case manager and primary physician. If his anemia does recur, I would be happy to see him again in the future. (2) Polyarthritis His polyarthralgia is thought to be consistent with possible rheumatoid arthritis. Patient currently is being followed by Dr. Arciniega at [facility]. Patient is getting methotrexate as well as prednisone treatment. (1) Anemia Anemia type: iron deficiency Iron deficiency anemia type: unspecified iron deficiency
--- NOTE | 2018-08-24 15:21 | P.PNONC_ITS ---
PN -Subjective Interval history: Diagnosis: Anemia Interval history: The patient is a 27-year-old man who was recently diagnosed with rheumatoid arthritis. He is also noted to have a mild to moderate anemia with low iron but a high ferritin. For his arthritis, he started on methotrexate and prednisone. He is currently taking 20 mg a day of the prednisone. He notes that his arthritis has markedly improved. He also started taking iron 1 tablet daily. He has been tolerating it without any GI upset. He denies any shortness of breath or cough. No dizziness or lightheadedness. He has not had any unusual bleeding or bruising. He did have a colonoscopy done that did not show any bleeding source. He is otherwise without complaint today. - Patient Self-Reported Symptoms SR Musculoskeletal issues: Joint pain or swelling Home Medications and Allergies Home Medications Medication Instructions Recorded Confirmed Type acetaminophen 650 mg PO PRN PRN 07/19/18 08/24/18 History ferrous sulfate [iron] 325 mg PO DAILY #60 tab 07/27/18 08/24/18 Rx methotrexate sodium 20 mg WEEKLY 07/27/18 08/24/18 History naproxen sodium 1,000 mg PO DAILY 07/27/18 08/24/18 History prednisone 20 mg PO DAILY 07/27/18 08/24/18 History Allergies Allergy/AdvReac Type Severity Reaction Status Date / Time Penicillins Allergy Verified 07/19/18 17:07 Exam Vital signs: Vital Signs Temp Pulse Resp BP Pulse Ox 08/24/18 14:55 97.5 F L 82 16 137/73 100 Intake and Output 08/23/18 08/24/18 08/24/18 23:59 07:59 15:59 Other: Weight 72.6 kg Patient Weight 08/24/18 23:59 Weight 72.6 kg - Constitutional positive no acute distress, positive average body habitus - Routine HEENT Exam Head: Present: normocephalic, atraumatic Eye: Present: EOMI, PERRL. Absent: conjunctival icterus, scleral injection ENT: Present: mucous membranes moist, oropharynx clear - Routine Neck Exam Present: supple. Absent: lymphadenopathy, thyromegaly - Routine Respiratory Exam Present: Clear to auscultation bilaterally. Absent: rales, wheezes - Routine Cardiovascular Exam Present: RRR, S1, S2. Absent: murmur - Routine Abdominal Exam Present: soft, normoactive bowel sounds. Absent: tenderness, organomegaly, mass - Routine Extremities Exam Absent: cyanosis, clubbing, edema - Routine Back/Spine Exam Back/Spine: Absent: vertebral tenderness - Routine Skin Exam Present: intact. Absent: petechiae, rash - Routine Neurological Exam Present: alert, oriented X3 - Routine Psychiatric Exam Present: normal affect, normal thought process Results - Labs Laboratory Last Values WBC 7.7 X10^3/uL (4.5-11.0) 08/24/18 14:50 RBC 4.67 X10^6/uL (4.5-5.9) 08/24/18 14:50 Hgb 12.9 g/dL (13.5-17.5) L 08/24/18 14:50 Hct 39.2 % (41-53) L 08/24/18 14:50 MCV 83.9 fL (80-100) 08/24/18 14:50 MCH 27.6 PG (26-34) 08/24/18 14:50 MCHC 32.9 % (30-36) 08/24/18 14:50 RDW 27.5 % (11.6-14.8) H 08/24/18 14:50 Plt Count 415 X10^3/uL (150-400) H 08/24/18 14:50 Neut % (Auto) 53.6 % (50-75) 08/24/18 14:50 Lymph % (Auto) 34.5 % (25-40) 08/24/18 14:50 [place] % (Auto) 10.1 % (3-14) 08/24/18 14:50 Eos % (Auto) 0.9 % (2-4) L 08/24/18 14:50 Baso % (Auto) 0.9 % (0-2) 08/24/18 14:50 Neut # (Auto) 4100 /uL (0344-2489) 08/24/18 14:50 Lymph # (Auto) 2700 /uL (3611-2833) 08/24/18 14:50 [place] # (Auto) 800 /uL (0-900) 08/24/18 14:50 Eos # (Auto) 100 /uL (0-450) 08/24/18 14:50 Baso # (Auto) 100 /uL (0-100) 08/24/18 14:50 Total Counted 100 07/27/18 16:06 Seg Neutrophils % 52.0 % (38-70) 07/27/18 16:06 Band Neutrophils % 1.0 % (3-7) L 07/27/18 16:06 Lymphocytes % (Manual) 34.0 % (25-45) 07/27/18 16:06 Atypical Lymphs % 5.0 % (-0) H 07/27/18 16:06 Monocytes % (Manual) 8.0 % (2-11) 07/27/18 16:06 Neutrophils # (Manual) 6042 /uL (9270-3476) H 07/27/18 16:06 Platelet Estimate Increased on smear 07/27/18 16:06 RBC Morphology Not Reportable 07/27/18 16:06 Anisocytosis 2+ H 07/27/18 16:06 Sodium 138 mmol/L (137-145) 07/27/18 16:06 Potassium 5.1 mmol/L (3.4-5.1) 07/27/18 16:06 Chloride 102 mmol/L (98-107) 07/27/18 16:06 Carbon Dioxide 25 mmol/L (22-32) 07/27/18 16:06 BUN 22 mg/dL (9-20) H 07/27/18 16:06 Creatinine 0.70 mg/dL (0.66-1.25) 07/27/18 16:06 Estimated GFR > 60.0 mL/min (>60) 07/27/18 16:06 BUN/Creatinine Ratio 31.4 (6-22) H 07/27/18 16:06 Glucose 102 mg/dL (70-100) H 07/27/18 16:06 Calcium 9.3 mg/dL (8.4-10.2) 07/27/18 16:06 Iron 71 ug/dL (49-181) 07/27/18 16:06 TIBC 323 ug/dL (261-462) 07/27/18 16:06 % Saturation 22 % (20-50) 07/27/18 16:06 Transferrin 262 mg/dL (206-381) 07/27/18 16:06 Ferritin 261.0 ng/mL (17.9-464) 07/27/18 16:06 Total Bilirubin 0.4 mg/dL (0.2-1.3) 07/27/18 16:06 AST 25 IU/L (17-59) 07/27/18 16:06 ALT 106 IU/L (21-72) H 07/27/18 16:06 Alkaline Phosphatase 82 U/L (38-126) 07/27/18 16:06 Total Protein 7.2 g/dL (6.3-8.2) 07/27/18 16:06 Albumin 3.8 g/dL (3.5-5.0) 07/27/18 16:06 Globulin 3.4 g/dL (1.7-4.1) 07/27/18 16:06 Albumin/Globulin Ratio 1.1 (1.0-2.8) 07/27/18 16:06 Vitamin B12 526 pg/mL (239-931) 07/27/18 16:06 Folate 4.0 ng/mL (2.76-20.0) 07/27/18 16:06 Assessment and Plan (1) Anemia Overview: Microcytic hypochromic anemia instantly identified during workup for polyarthralgia in July of 2018. No weight loss, no gastrointestinal symptoms, no family history of cancer. No family history of anemia. Assessment: 27-year-old man with a history of anemia. His red cell count has markedly improved with the oral iron. He will continue treatment for 1-2 months and then stop his iron replacement. 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 If his anemia does recur, I would be happy to see him again in the future. (2) Polyarthritis His polyarthralgia is thought to be consistent with possible rheumatoid arthritis. Patient currently is being followed by Dr. Arciniega at [facility]. Patient is getting methotrexate as well as prednisone treatment. (1) Anemia Anemia type: iron deficiency Iron deficiency anemia type: unspecified iron deficiency
[2018-08-24 15:25] LABS: Alanine Aminotransferase 32 IU/L (21-72); Albumin 4.6 g/dL (3.5-5.0); Albumin Globulin Ratio 1.4 (1.0-2.8); Alkaline Phosphatase 59 U/L (38-126); Aspartate Aminotransferase 15 IU/L (17-59); Bilirubin Total 0.8 mg/dL (0.2-1.3); Blood Urea Nitrogen 18 mg/dL (9-20); Calcium 9.8 mg/dL (8.4-10.2); Carbon Dioxide 27 mmol/L (22-32); Chloride 105 mmol/L (98-107); Estimated Glomerular Filt Rate > 60.0 mL/min (>60); Globulin 3.2 g/dL (1.7-4.1); Glucose 51 mg/dL (70-100); HEMOLYSIS < 15 (0-50); Potassium 3.8 mmol/L (3.4-5.1); Sodium 141 mmol/L (137-145); Total Protein 7.8 g/dL (6.3-8.2)
[2018-08-24 15:26] LABS: HEMOLYSIS < 15 (0-50); Iron 70 ug/dL (49-181)
[2018-08-24 15:36] LABS: Anisocytosis 3+; Dimorphic RBC 2; Percent Iron Saturation 21 % (20-50); Total Iron Binding Capacity 333 ug/dL (261-462); Transferrin 270 mg/dL (206-381)
[2018-08-24 15:37] LABS: Poikilocytosis 1+
== END ==
PROVIDERS: PCP Family Medicine; Visit Provider Internal Medicine Hematology & Oncology
DX: D50.9 Iron deficiency anemia, unspecified (principal); M13.0 Polyarthritis, unspecified
CPT/HCPCS: 36415; 80053; 82607; 82728; 82746; 83540; 83550; 85025; 99204; 99214

== ENCOUNTER 2021-03-23 20:42 | Emergency (ER) | payer OTHER, SELFPAY ==
[2021-03-23 21:06] VITALS: BP 137/73; PULSE 77; RESP 16; TEMP 37.1; O2SAT 100; BMI 26.4
[2021-03-23 21:32] LABS: COVID19 -Nasal RAPID POSITIVE (Negative)
--- NOTE | 2021-03-23 22:39 | ED.GENADULT ---
HPI - General Adult General Chief complaint: Upper Respiratory Symptoms Stated complaint: COUGH COGESTION RUNNY NOSE HEADACHE Time Seen by Provider: 03/23/21 22:34 Source: patient Mode of arrival: Ambulatory History of Present Illness HPI narrative: Patient is a 30-year-old male here for evaluation of a couple days of coughing congestion and runny nose and headache. He is COVID vaccinated. Has been around other individuals with similar symptoms. Related Data Home Medications Medication Instructions Recorded Confirmed acetaminophen 650 mg PO PRN PRN 07/19/18 08/24/18 methotrexate sodium 2.5 mg tablet 20 mg WEEKLY 07/27/18 08/24/18 naproxen sodium 500 mg 1,000 mg PO DAILY 07/27/18 08/24/18 tablet,extended release 24 hr mphase prednisone 20 mg tablet 20 mg PO DAILY 07/27/18 08/24/18 Previous Rx's Medication Instructions Recorded ferrous sulfate 325 mg (65 mg 325 mg PO DAILY #60 tab 07/27/18 iron) tablet (iron) Allergies Allergy/AdvReac Type Severity Reaction Status Date / Time Penicillins Allergy Verified 07/19/18 17:07 Review of Systems Constitutional Constitutional: Reports chills and Reports headache(s) ENT Ears, Nose, Mouth, and Throat: Reports headache(s) Comments: Sinus congestion Respiratory Respiratory: Reports cough Integumentary/Breasts Skin/Breast: Reports system reviewed and no additional complaints, except as documented Neurologic Neurologic: Reports headache(s) Hematologic/Lymphatic On Anticoagulants: No Patient History Medical History Anemia Polyarthritis Social History Smoking Status: Never smoker Smoking Status: Never smoker alcohol intake frequency: a few times a month Substance Use Type: does not use Exam Initial Vital Signs Initial Vital Signs: Vital Signs Temperature 98.7 F 03/23/21 21:06 Pulse Rate 77 03/23/21 21:06 Respiratory Rate 16 03/23/21 21:06 Blood Pressure 137/73 03/23/21 21:06 Pulse Oximetry 100 03/23/21 21:06 Const General: cooperative and healthy appearing HENMT Head: normal to inspection and normocephalic Resp Effort & Inspection: normal respiratory effort Cardio Rate: regular rate Skin General: no rashes or lesions noted Neuro General: patient alert and patient awake Extrem General: capillary refill normal Psych Appearance: grossly normal and well kempt Course Orders Ordered: ED Orders 03/23/21 21:10 COVID19 -Nasal swab/Pre-Proc Stat Vital Signs Vital signs: Vital Signs - 8 hr 03/23/21 21:06 Temperature 98.7 F Pulse Rate 77 Respiratory Rate 16 Blood Pressure 137/73 Pulse Oximetry 100 Medical Decision Making Lab Data Labs: Lab Results 03/23/21 Range/Units 21:10 SARS-CoV-2 (PCR) Positive H (Negative) MDM Narrative Medical decision making narrative: Patient is COVID positive and this does explain his presenting symptoms. No indication for antibiotics. No respiratory distress. Was given return precautions and follow-up instructions. He expressed understanding and agreement. Discharge Plan Departure Patient Disposition: Home Clinical Impression: COVID-19 Instructions: Coronavirus Disease 2019 Activity Restrictions/Additional Instructions: You can take Tylenol for any fevers or body aches. Contact your primary doctor for follow-up. Continue to follow walker and CDC guidelines with regard to quarantine. Return to the emergency department for any new or worsening symptoms. Prescriptions: No Action prednisone 20 mg Tablet 20 mg PO DAILY 0RF methotrexate sodium 2.5 mg Tablet 20 mg WEEKLY 0RF naproxen sodium 500 mg Tablet, Er Multiphase 24 Hr 1,000 mg PO DAILY 0RF ferrous sulfate [iron] 325 mg (65 mg iron) Tablet 325 mg PO DAILY Qty: 60 0RF acetaminophen 650 mg PO PRN PRN (Reason: pain) 0RF Referrals: Reji Gonzáles [Primary Care Provider] -
== END 2021-03-23 22:50 | disposition home or self-care (01) ==
PROVIDERS: Emergency Provider Emergency Medicine; PCP Family Medicine
DX: U07.1 COVID-19 (principal)
CPT/HCPCS: 87635; 99281; 99282; C9803

== ENCOUNTER 2022-08-20 16:37 | Emergency (ER) | payer OTHER, SELFPAY ==
[2022-08-20 16:43] VITALS: BP 152/92; PULSE 90; RESP 18; TEMP 36.6; O2SAT 98; BMI 27.1
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
== END 2022-08-20 17:46 | disposition home or self-care (01) ==
PROVIDERS: Emergency Provider Nurse Practitioner Critical Care Medicine; PCP Family Medicine
DX: S01.81XA Laceration without foreign body of other part of head, initial encounter (principal); S09.8XXA Other specified injuries of head, initial encounter; W22.8XXA Striking against or struck by other objects, initial encounter
CPT/HCPCS: 99282

== ENCOUNTER → 2023-08-28 09:57 | Outpatient (CLI) | payer OTHER, SELFPAY ==
--- NOTE | 2023-08-28 09:59 | DI.MRI.S_ITS ---
PROCEDURE: MR LUMBAR SPINE WO CON INDICATIONS: Spinal stenosis, lumbar region TECHNIQUE: Noncontrast sagittal T1 spin echo and T2 fast echo, sagittal STIR, and T2 fast spin echo through the lumbar spine. In cases with scoliosis, additional coronal T2 fast spin echo may be performed. COMPARISON: None. FINDINGS: Image quality: Excellent. Alignment and Curvature: There is normal bony alignment. Bone Marrow: Marrow is of normal overall signal. No acute vertebral body compression fractures. Spinal Cord: Conus medullaris terminates at the L1 level. Visualized cord demonstrates normal signal and size. Paraspinous Soft Tissues: No paravertebral masses. Discs: Mild disc desiccation is present L5-S1. T12-L1: No disc bulge, spinal stenosis or foraminal narrowing. L1-L2: No disc bulge, spinal stenosis or foraminal narrowing. L2-L3: No disc bulge, spinal stenosis or foraminal narrowing. Minimal epidural lipomatosis. L3-L4: Minimal disc bulge without spinal stenosis or foraminal narrowing. Minimal epidural lipomatosis. L4-L5: Minimal disc bulge without spinal stenosis. No foraminal narrowing. Mild ligamentum flavum hypertrophy. L5-S1: Mild disc bulge including a left posterior paracentral protrusion. Mild right foraminal narrowing. IMPRESSION: Minimal to mild early degenerative changes most prominent at L5-S1. Dictated by: Abby Mejia M.D. on 08/29/2023 at 14:53 Approved by: Abby Mejia M.D. on 08/29/2023 at 15:16
== END ==
LOC: MRI 09:58
PROVIDERS: PCP Family Medicine; Referring Provider Physical Medicine & Rehabilitation Pain Medicine; Visit Provider Physical Medicine & Rehabilitation Pain Medicine
DX: M48.062 Spinal stenosis, lumbar region with neurogenic claudication (principal); M47.817 Spondylosis without myelopathy or radiculopathy, lumbosacral region
CPT/HCPCS: 72148